=== PATIENT | female | born 1985 | race Caucasian/White ===

== ENCOUNTER 2023-03-22 09:44 | Outpatient (AMB) | payer OTHER, SELFPAY ==
--- NOTE | 2023-03-22 09:47 | MHC.OFFVIS ---
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 Patient states I've been having headaches all my life pretty much. Allergies hydrocodone Allergy (Severe, Verified 03/22/23 09:59) Migraine NSAIDS (Non-Steroidal Anti-Inflamma Allergy (Severe, Verified 03/22/23 09:59) Shortness of Breath oxycodone Allergy (Severe, Verified 03/22/23 09:59) Migraine adhesive Allergy (Unknown, Verified 03/22/23 09:59) Unknown buprenorphine [From Butrans] Allergy (Unknown, Verified 03/22/23 09:59) Unknown Medication List - Last Reconciled 03/22/23 by Lexy Keenan, MATHIEU acetaminophen (Tylenol Extra Strength) 500 mg PO Q6H PRN adalimumab (Humira) 40 mg subcut Q2W alendronate (Fosamax) 70 mg PO QWEEK alpha lipoic acid 600 mg PO DAILY amitriptyline 10 mg PO BEDTIME atogepant (Qulipta) 60 mg PO DAILY bupropion HCl 150 mg PO QAM buspirone 10 mg PO BID ayylfpjoae-zkljdtwagf-alh-cod 14-104-11-30 mg 1 cap PO Q4H PRN calcium carbonate (Calcium) 600 mg PO DAILY cholecalciferol (vitamin D3) 50 mcg PO DAILY coenzyme Z61-bzisgua E 100-100 mg-unit caps PO gabapentin 800 mg PO TID hydroxychloroquine 200 mg PO DAILY levothyroxine (Synthroid) 50 mcg PO DAILY liothyronine (Cytomel) 5 mcg PO DAILY magnesium 200 mg PO BID metoclopramide HCl 10 mg PO QIDACHS prednisone 2.5 mg PO Q OTHER DAY quetiapine 50 mg PO DAILY tizanidine 4 mg PO BEDTIME PRN topiramate 150 mg PO DAILY HPI HPI Comments History of Present Illness Details Right-handed 37-yr-old female presents for new pt evaluation of headache disorder. PMH connective tissue disease and rheumatology on chronic immunosuppresion tx f/b rheumatology and Sarah's thyroiditis. Pt reports she has had migraine since childhood w/o precipitating cause. She has been tried on multiple medications w/ varying effects. She has seen multiple neurologists over the years (has moved between different states). She was most recently seen by Dr Gardner, and upon his longterm, has been seeing Dr Edwige Pugh at [facility]. She comes here today to discuss possibility of retrying [place], [place] Headache questionnaire: Previous work-up? Brain MRI 03/17 and C-spine MRI- per notes- was NL. Typical mild headaches: Bilateral or right or left- frontal, occipital, or behind the ears. Sometimes a/w mild nausea. Frequency- 4-5 days out of the week when she has a fibromyalgia or her mixed connective tissue disease flares up. Takes Tylenol TID- for general pain, Fioricet as needed (frequency of use varies, receives 20 per month, sometimes runs out but other months has leftover)- which often helps. Typical migraine headache characteristics: Prodrome symptoms? unsure Aura? Every once in the while, may see flurries or dots prior to the onset. Location, quality, characteristics? Mid-frontal, above the bridge of the eyes, or mid-occipital. Stabbing, throbbing, nagging pain. Pain intensity? Mod-Severe Associated symptoms? Photophobia, phonophobia, osmophobia, nausea, allodynia (top of the head, even during her TTH). Focal weakness, Parethesias, Autonomic s/s? In the past, right facial tingling. Postdrome? Sometimes it may subside and linger for a few days. Triggers? Stress, weather changes, heat, caffeine (can trigger headache but a small amt can help). Any positional, valsalva, exertional, sexual activity triggers? None Menstrual triggers? May have migraine before/during her menses- just has spotting during her cycle since having a hysteroscopy. Time of day? No specific time of day Duration? 2-3 hrs, but can be 1-3 days. Frequency? In the past month, 9 migraine days. (In the past month, may have had 10 headache free days- notes she is alos on Tramadol bid-tid for back pain). How does headache impact your life? Sometimes cannot do what she needs to do. Current acute medication use/interventions: Qulipta 60mg qd- some effect, Topiramate 150mg qhs, Amitriptyline 35mg qhs, Mag, B2, C0-Q10. Previous acute medication use: Per pt- Aimovig, Emgality, Ajovy- lost effectiveness. Botox- years ago- was helpful- stopped d/t insurance coverage.. Propranolol- lost effectiveness. Depakote- ineffective. Current preventative medication use: Fioricet- prn TTH. Sumatriptan 100mg prn. Reglan prn- rarely. Previous preventative medication use: Nurtec/Ubrelvy- ineffective (was on Fioricet). Rizatriptan/Relpax- helped but effect waned. Non-pharmacological interventions: Warm pack helps. Ice does not help. Additional hx: History of musculoskeletal disorders or injury? chronic back pain, has h/o low back surgery, recent back injury was from trying to roll out of bed. History of concussion/head injury? none History of mood disorder? depression and anxiety History of sleep disorder? Sleeps ok. Uses quetiapine for sleep induction. History of respiratory disease? None History of CV disease? None History of coagulopathy? None History of endocrine or metabolic disease? Has sarah's thyroiditis- currently euthyroid History of seizure? None History of GI disorder? None. No constipation. 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 None PFS Medical History (Updated 03/22/23 @ 22:26 by MATHIEU Qureshi) Sleep difficulties Depression with anxiety Low back pain Fibromyalgia Sarah's thyroiditis Connective tissue disease Surgical History (Updated 03/22/23 @ 10:01 by BRI Frausto) H/O hernia repair History of hysteroscopy H/O tubal ligation H/O section H/O arthroscopic knee surgery History of back surgery Family History (Updated 03/22/23 @ 10:04 by BRI Frausto) Mother Migraine Lupus Breast cancer in female HTN (hypertension) Sarcoidosis Sister Migraine Father Cancer Son ADHD Anxiety Son Asthma Social History (Updated 03/22/23 @ 10:04 by BRI Frausto) Alcohol intake: current Patient Tobacco Use Status: Current everyday Tobacco user Review of Systems Const Details: See scanned ROS form Physical Exam Vital Signs: Last Vital Signs Pulse 99 03/22/23 09:56 BP 118/82 03/22/23 09:56 Pulse Ox 97 03/22/23 09:56 Oxygen Delivery Method Room Air 03/22/23 09:56 BMI result Body Mass Index 32.6 Const Orientation/consciousness: patient oriented x3 HEENT Other: No palpable scalp tenderness. Head: Yes normocephalic Resp Effort & Inspection: normal respiratory effort and able to speak in complete sentences Back/Spine/Pelvis Other: Low back pain- needs to alternate sitting/standing during visit Neuro General: patient oriented x3 Cranial nerves: Yes CN's II-XII intact bilaterally Cognition (Neuro): normal cognition Gait exam (Neuro): Normal gait present Motor exam (neuro): 5/5 motor strength present throughout Deep tendon reflexes (DTR's): Right triceps reflex intensity grade: 2+, Left triceps reflex intensity grade: 2+, Rt Biceps (C5, C6): 2+, Left biceps reflex intensity grade: 2+, Right brachioradialis reflex intensity grade: 2+, Left brachioradialis reflex intensity grade: 2+, Right patellar reflex intensity grade: 1+ and Left patellar reflex intensity grade: 1+ Coordination: olnzfx-ly-nvzb test normal Pupils: Normal pupillary reactivity/response: bilateral Psych Appearance: grossly normal Mental Status: mental status grossly normal Speech and movement: Normal speech and movement present Affect: normal affect Attitude: cooperative Thought process: Normal thought process present Assessment & Plan Assessment & Plan (1) Chronic migraine without aura: Code(s): G43.709 - Chronic migraine without aura, not intractable, without status migrainosus (2) Migraine with aura: Comment: w/ visual aura. This is a less frequent headache presentation Code(s): G43.109 - Migraine with aura, not intractable, without status migrainosus (3) Menstrual migraine: Code(s): G43.829 - Menstrual migraine, not intractable, without status migrainosus Plan For overall headache management: Discussed importance of good self-care, including but not limited to maintaining a healthy diet, adequate fluid intake, adequate sleep, and engaging in regular physical activity. For headache triggers: Track headaches. For mild headaches: Fioricet prn- discussed that this should be used sparingly. May be inhibiting full effect of Qulipta. For menstrual migraine: Trial Frovatriptan 1 tab bid starting 1-2 days prior to onset of menses, may repeat 1 tab bid up to 6 days total. For acute migraine headache treatment: Discussed importance of taking acute medications at the first sign of headache, however stressed importance of avoiding acute medication overuse. Continue prn Sumatriptan 100mg prn. Continue Reglan prn- advised to jim sparingly d/t risk for TD. Previous acute migraine medication trials: Nurtec/Ubrelvy- ineffective (was on Fioricet). Rizatriptan/Relpax- helped but effect waned. Acute migraine medication contraindications: None at this time. For chronic migraine prevention medication: Continue B2, Mag, CoQ-10. Continue Amitriptyline 35mg qhs. Continue Topiramate 150mg qhs. Continue Qulipta 60mg qd for now- note effect may be limited by current Fioricet and prednisone use- may need to hold once Botox started. Start Botox 155 units IM q 12 weeks. Previous migraine prevention medication trials: Aimovig, Emgality, Ajovy- lost effectiveness. Botox- years ago- was helpful- stopped d/t insurance coverage. Propranolol- lost effectiveness. Depakote- ineffective. Migraine prevention medication contraindications: None at this time. Information also given on non-pharmacological interventions, such as warming migraine caps or Nerivio neuromodulation devices. Pt states she cannot afford Cefaly at this time. Pt to follow-up in 3-4 months or sooner prn. Medications: New frovatriptan 1 tab bid starting 1-2 days before menses, may repeat up to 6 days total 30 days 12 tabs 6RF Coding Level of Care Code New Pt Level 4 (68524) Diagnoses Chronic migraine without aura G43.709 Migraine with aura G43.109 Menstrual migraine G43.829
[2023-03-22 09:56] VITALS: BP 118/82; PULSE 99; O2SAT 97; BMI 32.6
== END 2023-03-22 11:35 | disposition home or self-care (01) ==
PROVIDERS: PCP Psychiatry & Neurology Neurology; Visit Provider Nurse Practitioner Family
DX: G43.709 Chronic migraine without aura, not intractable, without status migrainosus (principal); G43.109 Migraine with aura, not intractable, without status migrainosus; G43.829 Menstrual migraine, not intractable, without status migrainosus
CPT/HCPCS: 99204

== ENCOUNTER → 2023-03-22 09:44 | Outpatient (BNVA) | payer OTHER, SELFPAY | PROVIDERS: PCP Psychiatry & Neurology Neurology; Visit Provider Nurse Practitioner Family ==

== ENCOUNTER 2023-05-15 08:18 | Outpatient (AMB) | payer OTHER, SELFPAY ==
--- NOTE | 2023-05-15 08:37 | A.OFFVIS_ITS ---
Intake Vital Signs 05/15/23 08:41 Height 5 ft 3.5 in Weight 191 lb BMI 33.3 BP 120/76 Blood Pressure Location Rt brachial Position Sitting Respiration 16 Pulse 98 Pulse Source Pulse Oximeter Pulse Oximetry (%) 99 Oxygen Delivery Method Room Air Intake Visit Reasons: Botox (B&B) Intake Note: Pt presents to the office for Botox injections. Tsa Screener Required: No Allergies hydrocodone Allergy (Severe, Verified 05/15/23 08:40) Migraine NSAIDS (Non-Steroidal Anti-Inflamma Allergy (Severe, Verified 05/15/23 08:40) Shortness of Breath oxycodone Allergy (Severe, Verified 05/15/23 08:40) Migraine adhesive Allergy (Unknown, Verified 05/15/23 08:40) Unknown buprenorphine [From Butrans] Allergy (Unknown, Verified 05/15/23 08:40) Unknown Medication List - Last Reconciled 05/15/23 by Vane Mcpherson MD acetaminophen (Tylenol Extra Strength) 500 mg PO Q6H PRN alendronate (Fosamax) 70 mg PO QWEEK alpha lipoic acid 600 mg PO DAILY amitriptyline 10 mg PO BEDTIME atogepant (Qulipta) 60 mg PO DAILY bupropion HCl 150 mg PO QAM buspirone 10 mg PO BID cowefrqwrh-tqhmndiddp-dxo-cod 05-550-84-30 mg 1 cap PO Q4H PRN calcium carbonate (Calcium) 600 mg PO DAILY cholecalciferol (vitamin D3) 50 mcg PO DAILY coenzyme B28-uhzmlzn E 100-100 mg-unit caps PO diclofenac sodium 75 mg PO BID etanercept (Enbrel) 25 mg subcut QWEEK frovatriptan 1 tab bid starting 1-2 days before menses, may repeat up to 6 days total 30 days gabapentin 800 mg PO TID hydroxychloroquine 200 mg PO DAILY levothyroxine (Synthroid) 50 mcg PO DAILY liothyronine (Cytomel) 5 mcg PO DAILY magnesium 200 mg PO BID metoclopramide HCl 10 mg PO QIDACHS prednisone 2.5 mg PO Q OTHER DAY quetiapine 50 mg PO DAILY tizanidine 4 mg PO BEDTIME PRN topiramate 150 mg PO DAILY HPI HPI Comments History of Present Illness Details ? 37y/o female comes for treatment of migraines with botox. ??? Most frequent reported adverse reactions following injection of botox for chronic migraine include neck pain (9%), headache(5%), eyelid ptosis(4%), migraine(4%), muscular weakness(4%), musculuskeletal stiffness(4%), bronchitis(3%), injection site pain (3%), musculoskeletal pain(3%), myalgia(3%), facial paresis(2%), HTN(2%) and muscle spasms(2%) were discussed in detail. ??? Botulinum toxin typeA 200units Lot no [id number] expiration Jul 2025 was diluted with 4 cc of normal saline . ??? Muscles injected- ??? Frontalis 4 sites ??? Procerus 1 site ??? Resident Care Coordinator- 2 sites ??? Temporalis- 8 sites ??? Occipitalis- 6 sites ??? Cervical paraspinals- 4 sites ??? Trapezius- 6 sites- 10 units each ??? 5 units each in 31 site ??? Total use- 185units ??? Discarded-15units [facility] Medical History Sleep difficulties Depression with anxiety Low back pain Fibromyalgia Haile's thyroiditis Connective tissue disease Surgical History H/O hernia repair History of hysteroscopy H/O tubal ligation H/O section H/O arthroscopic knee surgery History of back surgery Family History Mother Migraine Lupus Breast cancer in female HTN (hypertension) Sarcoidosis Sister Migraine Father Cancer Son ADHD Anxiety Son Asthma Social History Alcohol intake: current Patient Tobacco Use Status: Current everyday Tobacco user Physical Exam Vital Signs: Last Vital Signs Pulse 98 05/15/23 08:41 Resp 16 05/15/23 08:41 BP 120/76 05/15/23 08:41 Pulse Ox 99 05/15/23 08:41 Oxygen Delivery Method Room Air 05/15/23 08:41 BMI result Body Mass Index 33.3 Const Orientation/consciousness: patient oriented x3 HEENT Other: No palpable scalp tenderness. Head: Yes normocephalic Resp Effort & Inspection: normal respiratory effort and able to speak in complete sentences Back/Spine/Pelvis Other: Low back pain- needs to alternate sitting/standing during visit Neuro General: patient oriented x3 Cranial nerves: Yes CN's II-XII intact bilaterally Cognition (Neuro): normal cognition Gait exam (Neuro): Normal gait present Motor exam (neuro): 5/5 motor strength present throughout Coordination: gqznzu-sk-wyrh test normal Pupils: Normal pupillary reactivity/response: bilateral Psych Appearance: grossly normal Mental Status: mental status grossly normal Speech and movement: Normal speech and movement present Affect: normal affect Attitude: cooperative Thought process: Normal thought process present Office Procedures Botulinum toxin Injection 45000 - Migraine Procedure code (CPT) selection complete Office Meds onabotulinumtoxinA 200 unit solution for injection Performing Provider: Vane Mcpherson MD Performing Location: 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 This is a less frequent headache presentation Code(s): G43.109 - Migraine with aura, not intractable, without status migrainosus (3) Menstrual migraine: Code(s): G43.829 - Menstrual migraine, not intractable, without status migrainosus Plan Patient tolerated the procedure well she will call with any side effects Orders: Orders AMB Botulinum toxin Injection Today G43.709 - Chronic migraine without aura, not intractable, without status migrainosus Coding Level of Care Code Est Pt Level 1 (34950) Diagnoses Chronic migraine without aura G43.709 Migraine with aura G43.109 Menstrual migraine G43.829 CPT Codes Botox Injection - Botox 3: 31905 - Migraine ([id number])
[2023-05-15 08:41] VITALS: BP 120/76; PULSE 98; RESP 16; O2SAT 99; BMI 33.3
== END 2023-05-15 09:00 | disposition home or self-care (01) ==
PROVIDERS: PCP Psychiatry & Neurology Neurology; Visit Provider Psychiatry & Neurology Neurology
DX: G43.709 Chronic migraine without aura, not intractable, without status migrainosus (principal)
CPT/HCPCS: 64615

== ENCOUNTER → 2023-05-15 08:18 | Outpatient (BNVA) | payer OTHER, SELFPAY | PROVIDERS: PCP Psychiatry & Neurology Neurology; Visit Provider Psychiatry & Neurology Neurology | DX: G43.709 Chronic migraine without aura, not intractable, without status migrainosus (principal); G43.109 Migraine with aura, not intractable, without status migrainosus; G43.829 Menstrual migraine, not intractable, without status migrainosus | CPT/HCPCS: 64615; 99211; J0585 ==

== ENCOUNTER 2023-07-05 11:17 | Outpatient (AMB) | payer OTHER, SELFPAY ==
--- NOTE | 2023-07-05 11:27 | A.OFFVIS_ITS ---
Intake Vital Signs 07/05/23 11:31 Height 5 ft 3.5 in BP 114/84 Blood Pressure Location Rt brachial Position Sitting Intake Visit Reasons: 4 mo f/u - Migraine-Confirmed Intake Note: Patient presents for 4 month follow up migraines. migraines are getting a little better sinced I saw her Allergies buprenorphine [From BUTRANS] Allergy (Severe, Unverified 07/05/23 11:29) MIGRAINES hydrocodone Allergy (Severe, Verified 07/05/23 11:29) Migraine NSAIDS (Non-Steroidal Anti-Inflamma [NSAIDS (NON-STEROIDAL ANTI-INFLAMMA] Allergy (Severe, Unverified 07/05/23 11:29) SOB/SWELLING oxycodone Allergy (Severe, Verified 07/05/23 11:29) Migraine tramadol [From ULTRAM] Allergy (Intermediate, Unverified 07/05/23 11:29) ITCHING adhesive Allergy (Unknown, Verified 07/05/23 11:29) Unknown ibuprofen Allergy (Unknown, Verified 07/05/23 11:29) Unknown Medication List - Last Reconciled 07/09/23 by MATHIEU Qureshi acetaminophen (Tylenol Extra Strength) 500 mg PO Q6H PRN alendronate (Fosamax) 70 mg PO QWEEK alpha lipoic acid 600 mg PO DAILY amitriptyline 10 mg PO BEDTIME atogepant (Qulipta) 60 mg PO DAILY bupropion HCl 150 mg PO QAM buspirone 10 mg PO BID kjhzfkuvif-tfzgbnizvk-lwq-cod 92-045-74-30 mg 1 cap PO Q4H PRN calcium carbonate (Calcium) 600 mg PO DAILY cholecalciferol (vitamin D3) 50 mcg PO DAILY coenzyme X65-vorxkdr E 100-100 mg-unit caps PO diclofenac sodium 75 mg PO BID etanercept (Enbrel) 25 mg subcut QWEEK frovatriptan 1 tab bid starting 1-2 days before menses, may repeat up to 6 days total 30 days gabapentin 800 mg PO TID hydroxychloroquine 200 mg PO DAILY levothyroxine (Synthroid) 50 mcg PO DAILY liothyronine (Cytomel) 5 mcg PO DAILY magnesium 200 mg PO BID metoclopramide HCl 10 mg PO QIDACHS prednisone 2.5 mg PO Q OTHER DAY quetiapine 50 mg PO DAILY tizanidine 4 mg PO BEDTIME PRN topiramate 150 mg PO DAILY HPI HPI Comments History of Present Illness Details 37-yr-old female presents for f/u visit. Pt denies any significant interval medical changes. Was treated empirically in late May to prevent Flu as she is on Enbrel, and she was exposed to family member's w/ Flu. She also dropped a can of soup on her toe- x-ray was neg, but toe is still sore, swollen, and cold. Back injection was not helpful. Is being followed for this- plans to try [employer]. Baseline headache characteristics: Typical mild headaches: Bilateral or right or left- frontal, occipital, or behind the ears, a/w mild nausea at x's, allodynia Typical migraine headache characteristics: Aura of Every once in the while, may see flurries or dots prior to the onset. Mod-severe, Mid-frontal, above the bridge of the eyes, or mid-occipital. Stabbing, throbbing, nagging pain a/w photophobia, phonophobia, osmophobia, nausea, allodynia (top of the head). In the past, right facial tingling. Pt reports her migraines are less frequent but when she does have a migraine it is a bit more severe. She does feel that stress, not eating, weather changes are still triggers. Regarding her menses- she is spotting less- Frovatriptan was not overly effective. She did tolerate her Botox inj. and feels it is helping, although did have an increase in headache the following week (was also Thanksgiving). Current number of typical migraine days per month: 4-5 days Average painfulness of these migraines: Mod-severe- 5-9/10, when more severe a/w allodynia Current number of non-migraine headache days per month: Unsure- but r/t neck tightness and stress- her grandmother passed around [place]. Average painfulness of these headaches: mild Current number of days of acute medication use per month: < 4-5 of Sumatriptan or Excedrin , and rarely Fioricet, is using migraine caps. Previous number of migraine days per month prior to starting current preventive tx: Prior to Botox, 20 headcahe days w/ 9 migraine days. [facility] Medical History (Updated 06/28/23 @ 15:07 by Destiny Ward) Sleep difficulties Depression with anxiety Low back pain Fibromyalgia Haile's thyroiditis Connective tissue disease Surgical History H/O hernia repair History of hysteroscopy H/O tubal ligation H/O section H/O arthroscopic knee surgery History of back surgery Family History Mother Migraine Lupus Breast cancer in female HTN (hypertension) Sarcoidosis Sister Migraine Father Cancer Son ADHD Anxiety Son Asthma Social History Alcohol intake: current Patient Tobacco Use Status: Current everyday Tobacco user Physical Exam Vital Signs: Last Vital Signs BP 114/84 07/05/23 11:31 Const General: cooperative and no acute distress Orientation/consciousness: patient oriented x3 Resp Effort & Inspection: normal respiratory effort and able to speak in complete sentences Neuro General: patient oriented x3 Cranial nerves: Yes CN's II-XII intact bilaterally Cognition (Neuro): normal cognition Psych Appearance: grossly normal Mental Status: mental status grossly normal Speech and movement: Normal speech and movement present Affect: normal affect Attitude: cooperative Assessment & Plan Assessment & Plan (1) Chronic migraine without aura: Code(s): G43.709 - Chronic migraine without aura, not intractable, without status migrainosus (2) Migraine with aura: Comment: w/ visual aura. This is a less frequent headache presentation Code(s): G43.109 - Migraine with aura, not intractable, without status migrainosus (3) Menstrual migraine: Code(s): G43.829 - Menstrual migraine, not intractable, without status migrainosus Plan For overall headache management: Continue to optimize good self-care, including but not limited to maintaining a healthy diet, adequate fluid intake, adequate sleep, and engaging in regular physical activity. Track headaches. ? For mild headaches: Fioricet prn- use sparingly. May be inhibiting full effect of Qulipta. ? For menstrual migraine: May hold Frovatriptan- ineffective. Monitor. ? For acute migraine headache treatment: Continue prn Sumatriptan 100mg prn. Trial Eletriptan 40mg prn. Continue Reglan prn- advised to use sparingly d/t risk for TD. Previous acute migraine medication trials: Nurtec/Ubrelvy- ineffective (was on Fioricet). Rizatriptan/Relpax- helped but effect waned. Acute migraine medication contraindications: None at this time. ? For chronic migraine prevention medication: Continue B2, Mag, CoQ-10. Continue Amitriptyline 35mg qhs. Continue Topiramate 150mg qhs. Continue Qulipta 60mg qd for now- note effect may be limited by current Fioricet and prednisone use.. Continue Botox 155 units IM q 12 weeks. Previous migraine prevention medication trials: Aimovig, Emgality, Ajovy- lost effectiveness. Botox- years ago- was helpful- stopped d/t insurance coverage. Propranolol- lost effectiveness. Depakote- ineffective. Migraine prevention medication contraindications: None at this time. ? Advised to trial Nerivio neuromodulation 45 minute stimulation qod for prevention- form given to pt. ? Pt to follow-up in 3-4 months or sooner prn. Medications: New eletriptan take 1 tab at onset of headache; if no relief, may repeat 1 tab after at least 2 hrs; max = 2 tabs/24 hrs orally PRN; 12 tabs 3RF migraine headache 30 days Coding Level of Care Code Est Pt Level 4 (46893) Diagnoses Chronic migraine without aura G43.709 Migraine with aura G43.109 Menstrual migraine G43.829
[2023-07-05 11:31] VITALS: BP 114/84
== END 2023-07-05 12:27 | disposition home or self-care (01) ==
PROVIDERS: PCP Psychiatry & Neurology Neurology; Visit Provider Nurse Practitioner Family
DX: G43.709 Chronic migraine without aura, not intractable, without status migrainosus (principal); G43.109 Migraine with aura, not intractable, without status migrainosus; G43.829 Menstrual migraine, not intractable, without status migrainosus
CPT/HCPCS: 99214

== ENCOUNTER → 2023-07-05 11:17 | Outpatient (BNVA) | payer OTHER, SELFPAY | PROVIDERS: PCP Psychiatry & Neurology Neurology; Visit Provider Nurse Practitioner Family ==

== ENCOUNTER 2023-08-25 11:29 | Outpatient (AMB) | payer OTHER, SELFPAY ==
--- NOTE | 2023-08-25 11:37 | A.OFFVIS_ITS ---
Intake Vital Signs 08/25/23 11:38 Height 5 ft 3.5 in Weight 190 lb BMI 33.1 BP 128/76 Blood Pressure Location Rt brachial Position Sitting Respiration 16 Pulse 86 Pulse Source Pulse Oximeter Pulse Oximetry (%) 97 Oxygen Delivery Method Room Air Intake Visit Reasons: Botox appt-Confirmed Intake Note: Pt presents to the office for Botox injections. 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 Allergies buprenorphine [From BUTRANS] Allergy (Severe, Unverified 08/25/23 11:37) MIGRAINES hydrocodone Allergy (Severe, Verified 08/25/23 11:37) Migraine NSAIDS (Non-Steroidal Anti-Inflamma [NSAIDS (NON-STEROIDAL ANTI-INFLAMMA] Allergy (Severe, Unverified 08/25/23 11:37) SOB/SWELLING oxycodone Allergy (Severe, Verified 08/25/23 11:37) Migraine tramadol [From ULTRAM] Allergy (Intermediate, Unverified 08/25/23 11:37) ITCHING adhesive Allergy (Unknown, Verified 08/25/23 11:37) Unknown ibuprofen Allergy (Unknown, Verified 08/25/23 11:37) Unknown Medication List - Last Reconciled 08/25/23 by Vane Mcpherson MD acetaminophen (Tylenol Extra Strength) 500 mg PO Q6H PRN amitriptyline 10 mg PO BEDTIME atogepant (Qulipta) 60 mg PO DAILY bupropion HCl 150 mg PO QAM buspirone 10 mg PO BID cbqgintsbi-vtntuacqjb-krw-cod [id number] mg 1 cap PO Q4H PRN calcium carbonate (Calcium) 600 mg PO DAILY cholecalciferol (vitamin D3) 50 mcg PO DAILY coenzyme L48-ftmspse E 100-100 mg-unit caps PO diclofenac sodium 75 mg PO BID eletriptan take 1 tab at onset of headache; if no relief, may repeat 1 tab after at least 2 hrs; max = 2 tabs/24 hrs orally PRN; 30 days etanercept (Enbrel) 25 mg subcut QWEEK frovatriptan 1 tab bid starting 1-2 days before menses, may repeat up to 6 days total 30 days gabapentin 800 mg PO TID hydroxychloroquine 200 mg PO DAILY levothyroxine (Synthroid) 50 mcg PO DAILY liothyronine (Cytomel) 5 mcg PO DAILY magnesium 200 mg PO BID metoclopramide HCl 10 mg PO QIDACHS quetiapine 50 mg PO DAILY tizanidine 4 mg PO BEDTIME PRN topiramate 150 mg PO DAILY HPI HPI Comments History of Present Illness Details ? 37y/o female comes for treatment of migraines with botox. How many migraine days prior to botox-20 How long do the migraines last=2-3 Intensity of migraine-04/04 ER visits related to cifuzocn-8-7 Effectiveness of botox from last treatment(s) How many migraine days since receiving treatment:10 Change? in intensity of migraine?decreased Change in frequency of migraine?decreased Change in use of acute medication for migraine?decreased Change in quality of life?improved ER visits related to migraine?none Explanation for any gaps in treatment Have at least three months elapsed since last treatment (Last botox date - frequency of injections)05/18 ??? Most frequent reported adverse reactions following injection of botox for chronic migraine include neck pain (9%), headache(5%), eyelid ptosis(4%), migraine(4%), muscular weakness(4%), musculuskeletal stiffness(4%), bronchitis(3%), injection site pain (3%), musculoskeletal pain(3%), myalgia(3%), facial paresis(2%), HTN(2%) and muscle spasms(2%) were discussed in detail. ??? Botulinum toxin typeA 200units Lot no [id number] expiration November 2025 was diluted with 4 cc of normal saline . ??? Muscles injected- ??? Frontalis 4 sites ??? Procerus 1 site ??? Supervisor Electronic Coils- 2 sites ??? Temporalis- 8 sites ??? Occipitalis- 6 sites ??? Cervical paraspinals- 4 sites ??? Trapezius- 6 sites- 10 units each ??? 5 units each in 31 site ??? Total use- 185units ??? Discarded-15units [facility] Medical History Sleep difficulties Depression with anxiety Low back pain Fibromyalgia Haile's thyroiditis Connective tissue disease Surgical History H/O hernia repair History of hysteroscopy H/O tubal ligation H/O section H/O arthroscopic knee surgery History of back surgery Family History Mother Migraine Lupus Breast cancer in female HTN (hypertension) Sarcoidosis Sister Migraine Father Cancer Son ADHD Anxiety Son Asthma Social History Alcohol intake: current Patient Tobacco Use Status: Current everyday Tobacco user Physical Exam Vital Signs: Last Vital Signs Pulse 86 08/25/23 11:38 Resp 16 08/25/23 11:38 BP 128/76 08/25/23 11:38 Pulse Ox 97 08/25/23 11:38 Oxygen Delivery Method Room Air 08/25/23 11:38 BMI result Body Mass Index 33.1 Const General: cooperative and no acute distress Orientation/consciousness: patient oriented x3 Resp Effort & Inspection: normal respiratory effort and able to speak in complete sentences Neuro General: patient oriented x3 Cranial nerves: Yes CN's II-XII intact bilaterally Cognition (Neuro): normal cognition Psych Appearance: grossly normal Mental Status: mental status grossly normal Speech and movement: Normal speech and movement present Affect: normal affect Attitude: cooperative Office Procedures Botulinum toxin Injection 76752 - Migraine Procedure code (CPT) selection complete Office Meds onabotulinumtoxinA 200 unit solution for injection Performing Provider: Vane Mcpherson MD [place] [facility] [place] [facility] Administered by: Vane Mcpherson MD on 08/25/23 12:14 Dose Route Admin Location Dispensed Lot Number Expiration Date [facility] [place] [employer] Coord[employer] 185 unit subcut 200 units [id number] 11/24/25 6388-3283-20 ALLERGAN/BOTOX Comments: see HPI Assessment & Plan Assessment & Plan (1) Chronic migraine without aura: Code(s): G43.709 - Chronic migraine without aura, not intractable, without status migrainosus (2) Migraine with aura: Comment: w/ visual aura. This is a less frequent headache presentation Code(s): G43.109 - Migraine with aura, not intractable, without status migrainosus (3) Menstrual migraine: Code(s): G43.829 - Menstrual migraine, not intractable, without status migrainosus Plan Patient tolerated the procedure well she will call with any side effects Orders: Orders AMB Botulinum toxin Injection Today G43.709 - Chronic migraine without aura, not intractable, without status migrainosus Coding Level of Care Code Est Pt Level 1 (62675) Diagnoses Chronic migraine without aura G43.709 Migraine with aura G43.109 Menstrual migraine G43.829 CPT Codes Botox Injection - Botox 3: 91186 - Migraine ([id number])
[2023-08-25 11:38] VITALS: BP 128/76; PULSE 86; RESP 16; O2SAT 97; BMI 33.1
== END 2023-08-25 12:10 | disposition home or self-care (01) ==
PROVIDERS: PCP Psychiatry & Neurology Neurology; Visit Provider Psychiatry & Neurology Neurology
DX: G43.709 Chronic migraine without aura, not intractable, without status migrainosus (principal)
CPT/HCPCS: 64615

== ENCOUNTER → 2023-08-25 11:29 | Outpatient (BNVA) | payer OTHER, SELFPAY | PROVIDERS: PCP Psychiatry & Neurology Neurology; Visit Provider Psychiatry & Neurology Neurology | DX: G43.709 Chronic migraine without aura, not intractable, without status migrainosus (principal); G43.109 Migraine with aura, not intractable, without status migrainosus; G43.829 Menstrual migraine, not intractable, without status migrainosus | CPT/HCPCS: 64615; 99211; J0585 ==

== ENCOUNTER 2023-09-26 08:33 | Outpatient (AMB) | payer OTHER, SELFPAY ==
--- NOTE | 2023-09-26 08:34 | MHC.OFFVIS ---
Intake Intake Visit Reasons: 1 mnth f/u-Conf Intake Note: Pt presents for a one month follow up for migraine via telehealth. 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 Allergies buprenorphine [From BUTRANS] Allergy (Severe, Unverified 09/26/23 08:35) MIGRAINES hydrocodone Allergy (Severe, Verified 09/26/23 08:35) Migraine NSAIDS (Non-Steroidal Anti-Inflamma [NSAIDS (NON-STEROIDAL ANTI-INFLAMMA] Allergy (Severe, Unverified 09/26/23 08:35) SOB/SWELLING oxycodone Allergy (Severe, Verified 09/26/23 08:35) Migraine tramadol [From ULTRAM] Allergy (Intermediate, Unverified 09/26/23 08:35) ITCHING adhesive Allergy (Unknown, Verified 09/26/23 08:35) Unknown ibuprofen Allergy (Unknown, Verified 09/26/23 08:35) Unknown HPI HPI Comments History of Present Illness Details 37-yr-old female presents for f/u televideo visit via [employer]. Pt denies any significant interval medical changes. Pt notes that she was taking Tramadol regularly for her chronic low back pain. However, then she developed a stronger headache that lasted a whole week. She wonders if the tramadol triggered the migraine or was it just coincidence. In the past, other opiods have immediately triggered a migraine. She is seeing Dr Ballard at [facility]- working on losing weight, managing the tramadol, plans to try new back injections. PCP_ [facility] in [place]. She feels her migraines are overall better since starting Botox. She tolerated the 2nd cycle of Botox better- no post-tx migraine or headache. She is having 8-10 migraine days per month. She can have some tension headache days. Has been noticing some increased allergy symptoms. She wonders about reducing the Topiramate- to reduce her overall medication burden. Using Relpex prn. Using less Fioricet. Baseline headache characteristics: Typical mild headaches: Bilateral or right or left- frontal, occipital, or behind the ears, a/w mild nausea at x's, allodynia Typical migraine headache characteristics: Aura of Every once in the while, may see flurries or dots prior to the onset. Mod-severe, Mid-frontal, above the bridge of the eyes, or mid-occipital. Stabbing, throbbing, nagging pain a/w photophobia, phonophobia, osmophobia, nausea, allodynia (top of the head). In the past, right facial tingling. [facility] Medical History Sleep difficulties Depression with anxiety Low back pain Fibromyalgia Haile's thyroiditis Connective tissue disease Surgical History H/O hernia repair History of hysteroscopy H/O tubal ligation H/O section H/O arthroscopic knee surgery History of back surgery Family History Mother Migraine Lupus Breast cancer in female HTN (hypertension) Sarcoidosis Sister Migraine Father Cancer Son ADHD Anxiety Son Asthma Social History Alcohol intake: current Patient Tobacco Use Status: Current everyday Tobacco user Physical Exam Const General: cooperative and no acute distress Orientation/consciousness: patient oriented x3 Resp Effort & Inspection: normal respiratory effort and able to speak in complete sentences Neuro General: patient oriented x3 Cognition (Neuro): normal cognition Psych Appearance: grossly normal Mental Status: mental status grossly normal Speech and movement: Normal speech and movement present Affect: normal affect Attitude: cooperative Assessment & Plan Assessment & Plan (1) Chronic migraine without aura: Code(s): G43.709 - Chronic migraine without aura, not intractable, without status migrainosus (2) Migraine with aura: Comment: w/ visual aura. This is a less frequent headache presentation Code(s): G43.109 - Migraine with aura, not intractable, without status migrainosus (3) Menstrual migraine: Code(s): G43.829 - Menstrual migraine, not intractable, without status migrainosus Plan ? For overall headache management: Continue to optimize good self-care, including but not limited to maintaining a healthy diet, adequate fluid intake, adequate sleep, and engaging in regular physical activity. Track headaches. Reviewed that opioids including tramadol can reduce the threshold in which she may experience a migraine attack. Advised to discuss this with her pain management clinician. ? For mild headaches: Fioricet prn- use sparingly. May be inhibiting full effect of Qulipta. ? For menstrual migraine: Hold Frovatriptan- ineffective. Monitor. ? For acute migraine headache treatment: Continue prn Sumatriptan 100mg prn. Continue Eletriptan 40mg prn. Continue Reglan prn- advised to use sparingly d/t risk for TD. Previous acute migraine medication trials: Nurtec/Ubrelvy- ineffective (was on Fioricet). Rizatriptan/Relpax- helped but effect waned. Acute migraine medication contraindications: None at this time. ? For chronic migraine prevention medication: Continue B2, Mag, CoQ-10. Continue Amitriptyline 35mg qhs. Continue Topiramate 150mg qhs. Continue Qulipta 60mg qd for now- note effect may be limited by current Fioricet and prednisone use.. Continue Botox 155 units IM q 12 weeks, S patient is noticing good clinical effect from use. Previous migraine prevention medication trials: Aimovig, Emgality, Ajovy- lost effectiveness. Botox- years ago- was helpful- stopped d/t insurance coverage. Propranolol- lost effectiveness. Depakote- ineffective. Migraine prevention medication contraindications: None at this time. ? Pt to follow-up in 6 months or sooner prn. Medications: Discontinued frovatriptan Discontinued Reason: Doctor's Order 1 tab bid starting 1-2 days before menses, may repeat up to 6 days total 30 days 12 tabs 6RF Telehealth Telehealth Location of provider rendering services: practice address Location of patient: address on file Patient Identification confirmed using: Name, : Yes Telehealth method: video Patient verbally consented to treatment: Yes Patient verbally consented to billing insurance company: Yes Patient informed of any privacy concerns related to visit: Yes Minutes spent on Phone/Video with Pt.: 23 Coding Level of Care Code Tele Est Pt Level 4 (56866) Diagnoses Chronic migraine without aura G43.709 Migraine with aura G43.109 Menstrual migraine G43.829
== END 2023-09-26 11:51 | disposition home or self-care (01) ==
LOC: HO.HSMS 08:33
PROVIDERS: PCP Psychiatry & Neurology Neurology; Visit Provider Nurse Practitioner Family
DX: G43.709 Chronic migraine without aura, not intractable, without status migrainosus (principal); G43.109 Migraine with aura, not intractable, without status migrainosus; G43.829 Menstrual migraine, not intractable, without status migrainosus
CPT/HCPCS: 99214

== ENCOUNTER → 2023-09-26 08:33 | Outpatient (BNVA) | payer OTHER, SELFPAY | PROVIDERS: PCP Psychiatry & Neurology Neurology; Visit Provider Nurse Practitioner Family ==

== ENCOUNTER 2023-12-07 11:17 | Outpatient (AMB) | payer OTHER, SELFPAY ==
[2023-12-07 11:38] VITALS: BP 122/68; PULSE 76; RESP 16; O2SAT 98; BMI 29.8
--- NOTE | 2023-12-07 11:38 | MHC.OFFVIS ---
Vital Signs 12/07/23 11:38 Height 5 ft 3.5 in Weight 171 lb 2 oz BMI 29.8 BP 122/68 Blood Pressure Location Rt brachial Position Sitting Respiration 16 Pulse 76 Pulse Source Pulse Oximeter Pulse Oximetry (%) 98 Oxygen Delivery Method Room Air Intake Visit Reasons: Botox - Confirmed Intake Note: Pt presents to office for Botox injections. 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 Allergies buprenorphine [From BUTRANS] Allergy (Severe, Verified 12/07/23 11:38) MIGRAINES hydrocodone Allergy (Severe, Verified 12/07/23 11:38) Migraine NSAIDS (Non-Steroidal Anti-Inflamma [NSAIDS (NON-STEROIDAL ANTI-INFLAMMA] Allergy (Severe, Verified 12/07/23 11:38) SOB/SWELLING oxycodone Allergy (Severe, Verified 12/07/23 11:38) Migraine tramadol [From ULTRAM] Allergy (Intermediate, Verified 12/07/23 11:38) ITCHING adhesive Allergy (Unknown, Verified 12/07/23 11:38) Unknown ibuprofen Allergy (Unknown, Verified 12/07/23 11:38) Unknown Medication List - Last Reconciled 12/07/23 by Vane Mcpherson MD acetaminophen (Tylenol Extra Strength) 500 mg PO Q6H PRN amitriptyline 35 mg PO BEDTIME atogepant (Qulipta) 60 mg PO DAILY bupropion HCl XL 150 mg PO QAM buspirone 10 mg PO BID bbghcxlhcf-axorgiutea-rxa-cod 06-349-30-30 mg 1 cap PO Q4H PRN calcium carbonate (Calcium 600) 600 mg PO DAILY cholecalciferol (vitamin D3) 50 mcg PO DAILY coenzyme Y30-ztfrkwm E 100-100 mg-unit caps PO diclofenac sodium 75 mg PO BID eletriptan take 1 tab at onset of headache; if no relief, may repeat 1 tab after at least 2 hrs; max = 2 tabs/24 hrs orally PRN; 30 days etanercept (Enbrel) 25 mg subcut QWEEK gabapentin 800 mg PO TID hydroxychloroquine 200 mg PO DAILY levothyroxine (Synthroid) 50 mcg PO DAILY liothyronine (Cytomel) 5 mcg PO DAILY magnesium 200 mg PO BID metoclopramide HCl 10 mg PO QIDACHS quetiapine 50 mg PO DAILY tizanidine 4 mg PO BEDTIME PRN topiramate XR 150 mg PO DAILY HPI Comments Details: ? 38y/o female comes for treatment of migraines with botox. How many migraine days prior to botox-20 How long do the migraines last=2-3 Intensity of migraine-10/ ER visits related to fygvtcqe-9-9 Effectiveness of botox from last treatment(s) How many migraine days since receiving treatment:10 Change? in intensity of migraine?decreased Change in frequency of migraine?decreased Change in use of acute medication for migraine?decreased Change in quality of life?improved ER visits related to migraine?none Explanation for any gaps in treatment Have at least three months elapsed since last treatment (Last botox date - frequency of injections)09/16 ??? Most frequent reported adverse reactions following injection of botox for chronic migraine include neck pain (9%), headache(5%), eyelid ptosis(4%), migraine(4%), muscular weakness(4%), musculuskeletal stiffness(4%), bronchitis(3%), injection site pain (3%), musculoskeletal pain(3%), myalgia(3%), facial paresis(2%), HTN(2%) and muscle spasms(2%) were discussed in detail. ??? Botulinum toxin typeA 200units Lot no [id number] expiration November 2025 was diluted with 4 cc of normal saline . ??? Muscles injected- ??? Frontalis 4 sites ??? Procerus 1 site ??? Developer Automatic- 2 sites ??? Temporalis- 8 sites ??? Occipitalis- 6 sites ??? Cervical paraspinals- 4 sites ??? Trapezius- 6 sites- 10 units each ??? 5 units each in 31 site ??? Total use- 185units ??? Discarded-15units [facility] Medical History Sleep difficulties Depression with anxiety Low back pain Fibromyalgia Haile's thyroiditis Connective tissue disease Surgical History H/O hernia repair History of hysteroscopy H/O tubal ligation H/O section H/O arthroscopic knee surgery History of back surgery Family History Mother Migraine Lupus Breast cancer in female HTN (hypertension) Sarcoidosis Sister Migraine Father Cancer Son ADHD Anxiety Son Asthma Social History Alcohol intake: current Patient Tobacco Use Status: Current everyday Tobacco user Physical Exam Const General: cooperative and no acute distress Orientation/consciousness: patient oriented x3 Resp Effort & Inspection: normal respiratory effort and able to speak in complete sentences Neuro General: patient oriented x3 Cranial nerves: Yes CN's II-XII intact bilaterally Cognition (Neuro): normal cognition Psych Appearance: grossly normal Mental Status: mental status grossly normal Speech and movement: Normal speech and movement present Affect: normal affect Attitude: cooperative Office Procedures Botulinum toxin Injection 96776 - Migraine Procedure code (CPT) selection complete Office Meds onabotulinumtoxinA 200 unit solution for injection Performing Provider: Vane Mcpherson MD Performing Location: [facility] [place] [facility] Administered by: Vane Mcpherson MD on 12/07/23 11:52 Dose Route Admin Location Dispensed Lot Number Expiration Date [facility] 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 This is a less frequent headache presentation Code(s): G43.109 - Migraine with aura, not intractable, without status migrainosus Category: Medical (3) Menstrual migraine: Code(s): G43.829 - Menstrual migraine, not intractable, without status migrainosus Category: Medical Plan Patient tolerated the procedure well she will call with any side effects Orders: Orders AMB Botulinum toxin Injection Today G43.709 - Chronic migraine without aura, not intractable, without status migrainosus Medications: New onabotulinumtoxinA 200 units IM ONCE 1 ea 0RF migraine G43.709 - Chronic migraine without aura, not intractable, without status migrainosus Coding Level of Care Code Est Pt Level 1 (79472) Diagnoses Chronic migraine without aura G43.709 Migraine with aura G43.109 Menstrual migraine G43.829 CPT Codes Botox Injection - Botox 3: 80151 - Migraine ([id number])
== END 2023-12-07 12:00 | disposition home or self-care (01) ==
PROVIDERS: PCP Psychiatry & Neurology Neurology; Visit Provider Psychiatry & Neurology Neurology
DX: G43.E09 Chronic migraine with aura, not intractable, without status migrainosus (principal)
CPT/HCPCS: 64615

== ENCOUNTER → 2023-12-07 11:17 | Outpatient (BNVA) | payer OTHER, SELFPAY | PROVIDERS: PCP Psychiatry & Neurology Neurology; Visit Provider Psychiatry & Neurology Neurology | DX: G43.709 Chronic migraine without aura, not intractable, without status migrainosus (principal); G43.109 Migraine with aura, not intractable, without status migrainosus; G43.829 Menstrual migraine, not intractable, without status migrainosus | CPT/HCPCS: 64615; 99211; J0585 ==

== ENCOUNTER 2024-03-18 09:56 | Outpatient (AMB) | payer OTHER, SELFPAY ==
--- NOTE | 2024-03-18 10:00 | MHC.OFFVIS ---
Vital Signs 03/18/24 10:01 Height 5 ft 3.5 in Weight 166 lb 6 oz BMI 29.0 BP 110/70 Blood Pressure Location Rt brachial Position Sitting Respiration 16 Pulse 74 Pulse Source Palpation Intake Visit Reasons: Botox Intake Note: Pt presents to the office for Botox injections for chronic migraines. Nuclear Medicine Technologist Required: No Allergies buprenorphine [From BUTRANS] Allergy (Severe, Verified 03/18/24 10:01) MIGRAINES hydrocodone Allergy (Severe, Verified 03/18/24 10:01) Migraine NSAIDS (Non-Steroidal Anti-Inflamma [NSAIDS (NON-STEROIDAL ANTI-INFLAMMA] Allergy (Severe, Verified 03/18/24 10:01) SOB/SWELLING oxycodone Allergy (Severe, Verified 03/18/24 10:01) Migraine tramadol [From ULTRAM] Allergy (Intermediate, Verified 03/18/24 10:01) ITCHING adhesive Allergy (Unknown, Verified 03/18/24 10:01) Unknown ibuprofen Allergy (Unknown, Verified 03/18/24 10:01) Unknown Medication List - Last Reconciled 03/18/24 by Vane Mcpherson MD acetaminophen (Tylenol Extra Strength) 500 mg PO Q6H PRN amitriptyline 35 mg (3.5 x 10 mg) PO BEDTIME atogepant (Qulipta) 60 mg PO DAILY bupropion HCl XL 150 mg PO QAM buspirone 10 mg PO BID ivqdykewcx-lzpwcczlal-sfb-cod 39-487-88-30 mg 1 cap PO Q4H PRN calcium carbonate (Calcium 600) 600 mg PO DAILY cholecalciferol (vitamin D3) 50 mcg PO DAILY coenzyme [id number] E 100-100 mg-unit caps PO diclofenac sodium 75 mg PO BID eletriptan take 1 tab at onset of headache; if no relief, may repeat 1 tab after at least 2 hrs; max = 2 tabs/24 hrs orally PRN; 30 days etanercept (Enbrel) 25 mg subcut QWEEK gabapentin 800 mg PO TID hydroxychloroquine 200 mg PO DAILY levothyroxine (Synthroid) 50 mcg PO DAILY liothyronine (Cytomel) 5 mcg PO DAILY magnesium 200 mg PO BID metoclopramide HCl 10 mg PO QIDACHS quetiapine 50 mg PO DAILY sumatriptan succinate take 1 tab at onset of headache; if no relief, may repeat 1 tab after at least 2 hrs; max = 2 tabs/24 hrs PO tizanidine 4 mg PO BEDTIME PRN topiramate XR 150 mg PO DAILY HPI Comments Details: ? 38y/o female comes for treatment of migraines with botox. How many migraine days prior to botox-20 How long do the migraines last=2-3 Intensity of migraine-10 ER visits related to kidgtyjh-0-2 Effectiveness of botox from last treatment(s) How many migraine days since receiving treatment:10 Change? in intensity of migraine?decreased Change in frequency of migraine?decreased Change in use of acute medication for migraine?decreased Change in quality of life?improved ER visits related to migraine?none Explanation for any gaps in treatment Have at least three months elapsed since last treatment (Last botox date - frequency of injections)12/17 ??? Most frequent reported adverse reactions following injection of botox for chronic migraine include neck pain (9%), headache(5%), eyelid ptosis(4%), migraine(4%), muscular weakness(4%), musculuskeletal stiffness(4%), bronchitis(3%), injection site pain (3%), musculoskeletal pain(3%), myalgia(3%), facial paresis(2%), HTN(2%) and muscle spasms(2%) were discussed in detail. ??? Botulinum toxin typeA 200units Lot no [id number] expiration May 2026 was diluted with 4 cc of normal saline . ??? Muscles injected- ??? Frontalis 4 sites ??? Procerus 1 site ??? Technician Test Systems- 2 sites ??? Temporalis- 8 sites ??? Occipitalis- 6 sites ??? Cervical paraspinals- 4 sites ??? Trapezius- 6 sites- 10 units each ??? 5 units each in 31 site ??? Total use- 185units ??? Discarded-15units [facility] Medical History Sleep difficulties Depression with anxiety Low back pain Fibromyalgia Haile's thyroiditis Connective tissue disease Surgical History H/O hernia repair History of hysteroscopy H/O tubal ligation H/O section H/O arthroscopic knee surgery History of back surgery Family History Mother Migraine Lupus Breast cancer in female HTN (hypertension) Sarcoidosis Sister Migraine Father Cancer Son ADHD Anxiety Son Asthma Social History Alcohol intake: current Patient Tobacco Use Status: Current everyday Tobacco user Physical Exam Vital Signs: Last Vital Signs Pulse 74 03/18/24 10:01 Resp 16 03/18/24 10:01 BP 110/70 03/18/24 10:01 BMI result Body Mass Index 29.0 Const General: cooperative and no acute distress Orientation/consciousness: patient oriented x3 Resp Effort & Inspection: normal respiratory effort and able to speak in complete sentences Neuro General: patient oriented x3 Cranial nerves: Yes CN's II-XII intact bilaterally Cognition (Neuro): normal cognition Psych Appearance: grossly normal Mental Status: mental status grossly normal Speech and movement: Normal speech and movement present Affect: normal affect Attitude: cooperative Office Procedures Botulinum toxin Injection 61135 - Migraine Procedure code (CPT) selection complete Office Meds onabotulinumtoxinA 200 unit solution for injection Performing Provider: Vane Mcpherson MD Performing Location: [facility] [place] [facility] Administered by: Vane Mcpherson MD on 03/18/24 10:25 Dose Route Admin Location Dispensed Lot Number Expiration Date [facility] Shift Mechanic 185 unit subcut 200 units [id number] 05/26/26 0670-8244-17 ALLERGAN/BOTOX Comments: see hpi Assessment & Plan Assessment & Plan (1) Chronic migraine without aura: Code(s): G43.709 - Chronic migraine without aura, not intractable, without status migrainosus Category: Medical Qualifiers: Status migrainosus presence: without status migrainosus Intractability: intractable Qualified Code(s): G43.719 - Chronic migraine without aura, intractable, without status migrainosus (2) Menstrual migraine: Code(s): G43.829 - Menstrual migraine, not intractable, without status migrainosus Category: Medical Plan Patient tolerated the procedure well she will call with any side effects Orders: Orders AMB Botulinum toxin Injection Today G43.709 - Chronic migraine without aura, not intractable, without status migrainosus Medications: New onabotulinumtoxinA 200 units subcut ONCE 1 ea 0RF migraine G43.709 - Chronic migraine without aura, not intractable, without status migrainosus Coding Level of Care Code Est Pt Level 1 (02971) Diagnoses Intractable chronic migraine without aura and without status migrainosus G43.719 Status migrainosus presence: without status migrainosus Intractability: intractable Menstrual migraine G43.829 CPT Codes Botox Injection - Botox 3: 79444 - Migraine ([id number])
[2024-03-18 10:01] VITALS: BP 110/70; PULSE 74; RESP 16; BMI 29.0
== END 2024-03-18 10:23 | disposition home or self-care (01) ==
PROVIDERS: PCP Psychiatry & Neurology Neurology; Visit Provider Psychiatry & Neurology Neurology
DX: G43.719 Chronic migraine without aura, intractable, without status migrainosus (principal)
CPT/HCPCS: 64615

== ENCOUNTER → 2024-03-18 09:56 | Outpatient (BNVA) | payer OTHER, SELFPAY | PROVIDERS: PCP Psychiatry & Neurology Neurology; Visit Provider Psychiatry & Neurology Neurology | DX: G43.719 Chronic migraine without aura, intractable, without status migrainosus (principal); G43.829 Menstrual migraine, not intractable, without status migrainosus | CPT/HCPCS: 64615; 99211; J0585 ==

== ENCOUNTER 2024-07-02 09:50 | Outpatient (AMB) | payer OTHER, SELFPAY ==
[2024-07-02 09:52] VITALS: BP 98/70; PULSE 89; O2SAT 98; BMI 29.5
--- NOTE | 2024-07-02 09:52 | MHC.OFFVIS ---
Vital Signs 07/02/24 09:52 Height 5 ft 3.5 in Weight 169 lb 4 oz BMI 29.5 BP 98/70 Blood Pressure Location Rt brachial Position Sitting Pulse 89 Pulse Source Pulse Oximeter Pulse Oximetry (%) 98 Oxygen Delivery Method Room Air Intake Visit Reasons: Botox Intake Note: Patient needs a refill onmetoclopramide HCl Pattern Shop Supervisor Required: No Accompanied by: Self / Same As Patient Allergies buprenorphine [From BUTRANS] Allergy (Severe, Verified 07/02/24 09:59) MIGRAINES hydrocodone Allergy (Severe, Verified 07/02/24 09:59) Migraine NSAIDS (Non-Steroidal Anti-Inflamma [NSAIDS (NON-STEROIDAL ANTI-INFLAMMA] Allergy (Severe, Verified 07/02/24 09:59) SOB/SWELLING oxycodone Allergy (Severe, Verified 07/02/24 09:59) Migraine tramadol [From ULTRAM] Allergy (Intermediate, Verified 07/02/24 09:59) ITCHING adhesive Allergy (Unknown, Verified 07/02/24 09:59) Unknown ibuprofen Allergy (Unknown, Verified 07/02/24 09:59) Unknown Medication List - Last Reconciled 07/02/24 by Vane Mcpherson MD acetaminophen (Tylenol Extra Strength) 500 mg PO Q6H PRN amitriptyline 25 mg PO BEDTIME 30 days amitriptyline 10 mg PO BEDTIME 30 days atogepant (Qulipta) 60 mg PO DAILY 30 days bupropion HCl XL 300 mg PO QAM buspirone 10 mg PO BID qslosxrqqg-xeiyjypyii-htk-cod 50-296-09-30 mg 1 cap PO Q4H PRN calcium carbonate (Calcium 600) 600 mg PO DAILY cholecalciferol (vitamin D3) 50 mcg PO DAILY coenzyme H08-jstivwm E 100-100 mg-unit caps PO diclofenac sodium 75 mg PO BID eletriptan take 1 tab at onset of headache; if no relief, may repeat 1 tab after at least 2 hrs; max = 2 tabs/24 hrs orally PRN; 30 days etanercept (Enbrel) 25 mg subcut QWEEK gabapentin 800 mg PO TID hydroxychloroquine 200 mg PO DAILY levothyroxine (Synthroid) 50 mcg PO DAILY liothyronine (Cytomel) 5 mcg PO DAILY magnesium 200 mg PO BID metoclopramide HCl 10 mg PO QIDACHS quetiapine 50 mg PO DAILY sumatriptan succinate take 1 tab at onset of headache; if no relief, may repeat 1 tab after at least 2 hrs; max = 2 tabs/24 hrs PO tizanidine 4 mg PO BEDTIME PRN topiramate XR 150 mg PO DAILY Do you need a note to return to daycare/school/sports/work: No HPI Comments Details: ? 38y/o female comes for treatment of migraines with botox. How many migraine days prior to botox-20 How long do the migraines last=2-3 Intensity of migraine-10/ ER visits related to fcmnsdxe-4-4 Effectiveness of botox from last treatment(s) How many migraine days since receiving treatment:10 Change? in intensity of migraine?decreased Change in frequency of migraine?decreased Change in use of acute medication for migraine?decreased Change in quality of life?improved ER visits related to migraine?none Explanation for any gaps in treatment Have at least three months elapsed since last treatment (Last botox date - frequency of injections)3mths ago ??? Most frequent reported adverse reactions following injection of botox for chronic migraine include neck pain (9%), headache(5%), eyelid ptosis(4%), migraine(4%), muscular weakness(4%), musculuskeletal stiffness(4%), bronchitis(3%), injection site pain (3%), musculoskeletal pain(3%), myalgia(3%), facial paresis(2%), HTN(2%) and muscle spasms(2%) were discussed in detail. ??? Botulinum toxin typeA 200units Lot no [id number] expiration Feb 2026 was diluted with 4 cc of normal saline . ??? Muscles injected- ??? Frontalis 4 sites ??? Procerus 1 site ??? Complaint Supervisor- 2 sites ??? Temporalis- 8 sites ??? Occipitalis- 6 sites ??? Cervical paraspinals- 4 sites ??? Trapezius- 6 sites- 10 units each ??? 5 units each in 31 site ??? Total use- 185units ??? Discarded-15units [facility] Medical History Sleep difficulties Depression with anxiety Low back pain Fibromyalgia Haile's thyroiditis Connective tissue disease Surgical History H/O hernia repair History of hysteroscopy H/O tubal ligation H/O section H/O arthroscopic knee surgery History of back surgery Family History Mother Migraine Lupus Breast cancer in female HTN (hypertension) Sarcoidosis Sister Migraine Father Cancer Son ADHD Anxiety Son Asthma Social History Alcohol intake: current Patient Tobacco Use Status: Current everyday Tobacco user Physical Exam Vital Signs: Last Vital Signs Pulse 89 07/02/24 09:52 BP 98/70 07/02/24 09:52 Pulse Ox 98 07/02/24 09:52 Oxygen Delivery Method Room Air 07/02/24 09:52 BMI result Body Mass Index 29.5 Const General: cooperative and no acute distress Orientation/consciousness: patient oriented x3 Resp Effort & Inspection: normal respiratory effort and able to speak in complete sentences Neuro General: patient oriented x3 Cranial nerves: Yes CN's II-XII intact bilaterally Cognition (Neuro): normal cognition Psych Appearance: grossly normal Mental Status: mental status grossly normal Speech and movement: Normal speech and movement present Affect: normal affect Attitude: cooperative Office Procedures Botulinum toxin Injection 95526 - Migraine Procedure code (CPT) selection complete Office Meds onabotulinumtoxinA 200 unit solution for injection Performing Provider: Vane Mcpherson MD [place] [facility] [place] [facility] Administered by: Vane Mcpherson MD on 07/02/24 10:19 Dose Route Admin Location Dispensed Lot Number Expiration Date [facility] Yarn Inspector 185 unit subcut 200 units [id number] ALLERGAN/BOTOX Comments: see hpi Assessment & Plan Assessment & Plan (1) Chronic migraine without aura: Code(s): G43.709 - Chronic migraine without aura, not intractable, without status migrainosus Category: Medical Qualifiers: Status migrainosus presence: without status migrainosus Intractability: not intractable Qualified Code(s): G43.709 - Chronic migraine without aura, not intractable, without status migrainosus Plan Patient tolerated the procedure well she will call with any side effects Orders: Orders AMB Botulinum toxin Injection Today G43.709 - Chronic migraine without aura, not intractable, without status migrainosus Medications: New onabotulinumtoxinA 200 units subcut ONCE 1 ea 0RF migraine G43.709 - Chronic migraine without aura, not intractable, without status migrainosus Coding Level of Care Code Est Pt Level 1 (78479) Diagnoses Chronic migraine without aura without status migrainosus, not intractable G43.709 Status migrainosus presence: without status migrainosus Intractability: not intractable CPT Codes Botox Injection - Botox 3: 42007 - Migraine ([id number])
== END 2024-07-02 10:20 | disposition home or self-care (01) ==
PROVIDERS: PCP Psychiatry & Neurology Neurology; Visit Provider Psychiatry & Neurology Neurology
DX: G43.709 Chronic migraine without aura, not intractable, without status migrainosus (principal)
CPT/HCPCS: 64615

== ENCOUNTER → 2024-07-02 09:50 | Outpatient (BNVA) | payer OTHER, SELFPAY | PROVIDERS: PCP Psychiatry & Neurology Neurology; Visit Provider Psychiatry & Neurology Neurology | DX: G43.709 Chronic migraine without aura, not intractable, without status migrainosus (principal) | CPT/HCPCS: 64615; 99211; J0585 ==

== ENCOUNTER 2024-10-08 10:35 | Outpatient (AMB) | payer OTHER, SELFPAY ==
--- NOTE | 2024-10-08 10:40 | A.OFFVIS_ITS ---
Vital Signs 10/08/24 10:41 Height 5 ft 3.5 in Weight 174 lb BMI 30.3 Pulse 65 Pulse Source Pulse Oximeter Pulse Oximetry (%) 100 Oxygen Delivery Method Room Air Intake Visit Reasons: Botox Intake Note: Patient presents for botox injection. practice supplied Allergies buprenorphine [From BUTRANS] Allergy (Severe, Verified 10/08/24 10:46) MIGRAINES hydrocodone Allergy (Severe, Verified 10/08/24 10:46) Migraine NSAIDS (Non-Steroidal Anti-Inflamma [NSAIDS (NON-STEROIDAL ANTI-INFLAMMA] Allergy (Severe, Verified 10/08/24 10:46) SOB/SWELLING oxycodone Allergy (Severe, Verified 10/08/24 10:46) Migraine tramadol [From ULTRAM] Allergy (Intermediate, Verified 10/08/24 10:46) ITCHING adhesive Allergy (Unknown, Verified 10/08/24 10:46) Unknown ibuprofen Allergy (Unknown, Verified 10/08/24 10:46) Unknown Medication List - Last Reconciled 10/08/24 by Vane Mcpherson MD acetaminophen (Tylenol Extra Strength) 500 mg PO Q6H PRN amitriptyline 25 mg PO BEDTIME 30 days amitriptyline 10 mg PO BEDTIME 30 days atogepant (Qulipta) 60 mg PO DAILY 30 days bupropion HCl XL 300 mg PO QAM buspirone 10 mg PO BID vuermrukni-apjwvtbqjl-smk-cod 24-331-64-30 mg 1 cap PO Q4H PRN coenzyme W87-cjiekau E 100-100 mg-unit caps PO diclofenac sodium 75 mg PO BID eletriptan take 1 tab at onset of headache; if no relief, may repeat 1 tab after at least 2 hrs; max = 2 tabs/24 hrs orally PRN; 30 days etanercept (Enbrel) 25 mg subcut QWEEK gabapentin 800 mg PO TID hydroxychloroquine 200 mg PO DAILY levothyroxine (Synthroid) 50 mcg PO DAILY liothyronine (Cytomel) 5 mcg PO DAILY magnesium 200 mg PO BID metoclopramide HCl 10 mg PO QIDACHS quetiapine 50 mg PO DAILY sumatriptan succinate take 1 tab at onset of headache; if no relief, may repeat 1 tab after at least 2 hrs; max = 2 tabs/24 hrs PO tizanidine 4 mg PO BEDTIME PRN topiramate XR 150 mg PO DAILY HPI Comments Details: ? 38y/o female comes for treatment of migraines with botox. How many migraine days prior to botox-20 How long do the migraines last=2-3 Intensity of migraine-10/10 ER visits related to ryyqosof-8-6 Effectiveness of botox from last treatment(s) How many migraine days since receiving treatment:10 Change? in intensity of migraine?decreased Change in frequency of migraine?decreased Change in use of acute medication for migraine?decreased Change in quality of life?improved ER visits related to migraine?none Explanation for any gaps in treatment Have at least three months elapsed since last treatment (Last botox date - frequency of injections)3mths ago ??? Most frequent reported adverse reactions following injection of botox for chronic migraine include neck pain (9%), headache(5%), eyelid ptosis(4%), migraine(4%), muscular weakness(4%), musculuskeletal stiffness(4%), bronchitis(3%), injection site pain (3%), musculoskeletal pain(3%), myalgia(3%), facial paresis(2%), HTN(2%) and muscle spasms(2%) were discussed in detail. ??? Botulinum toxin typeA 200units Lot no [id number] expiration September 2026 was diluted with 4 cc of normal saline . ??? Muscles injected- ??? Frontalis 4 sites ??? Procerus 1 site ??? Boiler House Operator- 2 sites ??? Temporalis- 8 sites ??? Occipitalis- 6 sites ??? Cervical paraspinals- 4 sites ??? Trapezius- 6 sites- 10 units each ??? 5 units each in 31 site ??? Total use- 185units ??? Discarded-15units [facility] Medical History Sleep difficulties Depression with anxiety Low back pain Fibromyalgia Haile's thyroiditis Connective tissue disease Surgical History H/O hernia repair History of hysteroscopy H/O tubal ligation H/O section H/O arthroscopic knee surgery History of back surgery Family History Mother Migraine Lupus Breast cancer in female HTN (hypertension) Sarcoidosis Sister Migraine Father Cancer Son ADHD Anxiety Son Asthma Social History Alcohol intake: current Patient Tobacco Use Status: Current everyday Tobacco user Physical Exam Vital Signs: Last Vital Signs Pulse 65 10/08/24 10:41 Pulse Ox 100 10/08/24 10:41 Oxygen Delivery Method Room Air 10/08/24 10:41 BMI result Body Mass Index 30.3 Const General: cooperative and no acute distress Orientation/consciousness: patient oriented x3 Resp Effort & Inspection: normal respiratory effort and able to speak in complete sentences Neuro General: patient oriented x3 Cranial nerves: Yes CN's II-XII intact bilaterally Cognition (Neuro): normal cognition Psych Appearance: grossly normal Mental Status: mental status grossly normal Speech and movement: Normal speech and movement present Affect: normal affect Attitude: cooperative Office Procedures Botulinum toxin Injection 98064 - Migraine Procedure code (CPT) selection complete Office Meds onabotulinumtoxinA 200 unit solution for injection Performing Provider: Vane Mcpherson MD [place] [facility] [place] [facility] Administered by: Vane Mcpherson MD on 10/08/24 11:11 Dose Route Admin Location Dispensed Lot Number Expiration Date [facility] Fibreglass Laminator 185 unit subcut 200 units [id number] ALLERGAN/BOTOX Comments: see hpi Assessment & Plan Assessment & Plan (1) Chronic migraine without aura: Code(s): G43.709 - Chronic migraine without aura, not intractable, without status migrainosus Category: Medical Plan Patient tolerated the procedure well she will call with any side effects Orders: Orders AMB Botulinum toxin Injection Today G43.709 - Chronic migraine without aura, not intractable, without status migrainosus Medications: New onabotulinumtoxinA 200 units subcut ONCE 1 ea 0RF migraine G43.709 - Chronic migraine without aura, not intractable, without status migrainosus Coding Level of Care Code Est Pt Level 1 (19049) Diagnoses Chronic migraine without aura G43.709 CPT Codes Botox Injection - Botox 3: 38702 - Migraine ([id number])
[2024-10-08 10:41] VITALS: PULSE 65; O2SAT 100; BMI 30.3
--- OUTSIDE RECORDS SUMMARY | 2024-10-08 12:44 | XMS_ITS | Clinical Summary ---
Author Organization [facility] Address [address] [place] [phone] Phone Care Team Providers Care Research Engineer Marine Equipment Name Role Phone Nilson Whitman MD Primary Care Provider [phone] Surgical History Surgery Date Site/Laterality Comments OTHER SURGICAL HISTORY PROCEDURE: HYSTEROSCOPY, DIAGNOSTIC KNEE SURGERY Bilateral PROCEDURE: HISTORICAL KNEE SURGERY; COMMENT: Left x2, Right x1 BACK SURGERY PROCEDURE: HISTORICAL BACK SURGERY; COMMENT: L4-5, L5-S1 fusion with rods HERNIA REPAIR PROCEDURE: HISTORICAL HERNIA REPAIR/UMB KNEE SURGERY 01/02/2015 Right PROCEDURE: HISTORICAL KNEE SURGERY; COMMENT: knee arthroscopy, major synovectomy, Hoffa fat pad debridement Medical History Medical History Date Comments Hypothyroidism DX:Hypothyroidis m Hypertrophic cardiomyopathy (CMS/HCC V24, CMS/HCC V28) DX:Hypertrophic cardiomyopat hy (HCC) Anxiety DX:Anxiety IBS (irritable bowel syndrome) 04/15/2021 D X:IBS (irritable bowel syndrome) Dyslipidemia 04/15/2021 DX:Dyslipidemia Tobacco use 04/15/2021 DX:Tobacco use Migraine DX:Migraine Family History Medical History Relation Name Comments Stomach cancer Father Breast cancer Mother Cancer of Small Bowel Neg Hx Colon cancer Neg Hx Kidney cancer Neg Hx Ovarian cancer Neg Hx Pancreatic cancer Neg Hx Uterine cancer Neg Hx Relation Name Status Comments Father Mother Alive Social History Tobacco Use Types Packs/Day Years Used Date Smoking Tobacco: Every Day Smokeless Tobacco: Current Alcohol Use Standard Drinks/Week Comments No 0 (1 standard drink = 0.6 oz pur e alcohol) Comments No Sex and Gender Information Value Date Recorded Sex Assigned at Not on file Legal Sex Female 9:52 PM EST Gender Identity Not on file Sexual Orientation Not on file Obstetrics History Para Term AB IAB SAB Ectopic Multiple Livin g Live Births 2 Last Filed Vital Signs Vital Sign Reading Time Taken Comments Blood Pressure 104/61 02/28/2024 11:23 AM EDT Si tting L Arm Pulse 88 02/28/2024 11:23 AM EDT Temperature - - Respiratory Rate - - Oxygen Saturation - - Inhaled Oxygen Concentration - - Weight 72.6 kg (160 lb) 05/07/2024 11:01 AM EST Height 160 cm (5' 3 ) 05/07/2024 11:01 AM EST Body Mass Index 28.34 05/07/2024 11:01 AM EST Plan of Treatment Health Maintenance Due Date Last Done Comments COVID-19 Vaccine (#1) 10/26/1988 DTaP,Tdap,and Td Vaccines (1 - Tdap) 10/26/2002 Hepatitis A Vaccines (1 of 2 - Risk 2-dose series) 10/26/2002 Hepatitis B Vaccines (1 of 3 - 19+ 3-dose series) 10/26/2002 Cholesterol Screening (Lipid Panel) 05/28/2022 Depression Screening 05/28/2022 HIV Screening 05/28/2022 Hepatitis C Screening 05/28/2022 Social Influencers of Health Screening 05/28/2022 Cervical Cancer Screening: P ap Smear 02/18/2024 02/17/2021 Influenza Vaccine (Season Ended) 2025 03/23/2023, 07/26/2022 Breast Cancer Screening 05/07/2026 05/07/20 24, 10/19/2022 Pneumococcal Vaccine: Pediatrics (0 to 5 Years) and At-Risk Patients (6 to 64 Years) Completed 12/19/2022 HIB Vaccines Aged Out No longer eligi ble based on patient's age to complete this topic HPV Vaccines Aged Out No longer eligi ble based on patient's age to complete this topic IPV Vaccines Aged Out No longer eligi ble based on patient's age to complete this topic MMR Vaccines Aged Out No longer eligi ble based on patient's age to complete this topic Meningococcal ACWY Vaccine Aged Out N o longer eligible based on patient's age to complete this topic Meningococcal B Vaccine Aged Out No l onger eligible based on patient's age to complete this topic RSV Immunization Patients Under 20 months Aged Out No longer eligible b ased on patient's age to complete this topic Varicella Vaccines Aged Out No longer eligible based on patient's age to complete this topic Procedures Procedure Name Priority Date/Time Associated Diagnosis Comments MG MAMMO DIGITAL SCREENING W BALBIR BILAT Routine 05/07/2024 11:24 AM EST Encounter for screening mammogram for breast cancer PAP SMEAR Routine 02/17/2021 from Last 3 Months or Most Recently Relevant to Health Maintenance Results * MG Mammo Digital Screening w Balbir bilat (05/07/2024 11:24 AM EST) Anatomical Region Laterality Modality Breast Bilateral Mammography 05/07/2024 11:3 8 AM EST Impressions 05/07/2024 11:42 AM EST No mammographic evidence of malignancy. A negative mammogram in the presence of a clinically suspicious palpable abnormality does not preclude the possibility of malignancy or alter the indications for biopsy. PQRI CPT II 3342F Code 12267, 48881 PQRI 225 CPT II 7025F TISSUE DENSITY: There are scattered areas of fibroglandular density. (BI-RADS category B) IMPRESSION: Benign. BI-RADS CATEGORY: 2 - BENIGN RECOMMENDATION: Screening bilateral mammogram is recommended in 1 year. Mammo Location: [facility], [address] [place] [address] -------- FINAL REPORT -------- Dictated By: Arash Kaur Dictated Date: 05/07/2024 11:38 ET Assigned Physician: Arash Kaur Reviewed and Electronically Signed By: Arash Kaur Signed Date: 05/07/2024 11:42 ET Workstation ID: [id number] Transcribed By: Self Edit Transcribed Date: 05/07/2024 11:38 ET Narrative 05/07/2024 11:42 AM EST CLINICAL: The patient is a 38 years Female presenting for routine screening mammography. COMPARISON: 10/19/2022 and 07/09/2020. ?? TECHNIQUE: Full-field digital mammography of the breasts bilaterally consisting of tomosynthesis in MLO and CC projection is performed in the Surgical Theatere 2000-D unit. ??Computer aided detection utilizing the iCAD system was utilized. FINDINGS: The breasts are again seen to be composed of a combination of fatty and fibroglandular elements as also demonstrated on prior studies. ??A few scattered benign calcifications are again seen bilaterally. ??There is no suspicious cluster of microcalcifications, mass, or area of architectural distortion. There is no skin thickening or nipple retraction. Procedure Note Arash Kaur MD - 05/07/2024 CLINICAL: The patient is a 38 years Female presenting for routinescreening mammography. COMPARISON: 10/19/2022 and 07/09/2020. TECHNIQUE: Full-field digital mammography of the breasts bilaterallyconsisting of tomosynthesis in MLO and CC projection is performed in theTeknovusographe 2000-D unit. Computer aided detection utilizing the Matchpoint Careersystem was utilized. FINDINGS: The breasts are again seen to be composed of a combination offatty and fibroglandular elements as also demonstrated on prior studies.A few scattered benign calcifications are again seen bilaterally. Thereis no suspicious cluster of microcalcifications, mass, or area ofarchitectural distortion. There is no skin thickening or nippleretraction. IMPRESSION: No mammographic evidence of malignancy. A negative mammogram in the presence of a clinically suspicious palpableabnormality does not preclude the possibility of malignancy or alter theindications for biopsy. PQRI CPT II 3342F Code 45772, 63729 PQRI 225 CPT II 7025F TISSUE DENSITY: There are scattered areas of fibroglandular density.(BI-RADS category B) IMPRESSION: Benign. BI-RADS CATEGORY: 2 - BENIGN RECOMMENDATION: Screening bilateral mammogram is recommended in 1 year. Mammo Location: [facility], [address] [place] [id number] -------- FINAL REPORT -------- Dictated By: Arash Kaur Dictated Date: 05/07/2024 11:38 ET Assigned Physician: Arash Kaur Reviewed and Electronically Signed By: Arash Kaur Signed Date: 05/07/2024 11:42 ET Workstation ID: [id number] Transcribed By: Self Edit Transcribed Date: 05/07/2024 11:38 ET us Nilson Whitman MD IMG BI PROCEDURES Final Result * Pap smear (02/17/2021) 02/17/2021 Narrative HISTORICAL TESTING LAB RESULTING AGENCY - 03/02/2021 7:45 AM EDT [id number] THINPREP PAP, IMAGED: NEGATIVE FOR SQUAMOUS INTRAEPITHELIAL LESION AND MALIGNANCY . BERNARDINO SPEARS(ASCP) (CASE ELECTRONICALLY SIGNED 03 01 2021) RESULT OF APTIMA HIGH RISK HPV ASSAY: HIGH RISK HPV: ??NEGATIVE (SEROTYPES 16,18,31,33,35,39,45,51,52,56,58,59,66,68) COMPLETED ON 2021-02-22 ADEQUACY: SATISFACTORY ENDOCERVICAL/TRANSFORMATION ZONE COMPONENT PRESENT. SOURCE: THINPREP PAP HPV ANY DX: ??REFLEX 16 AND 18, CERVICAL, IMAGED CLINICAL INFORMATION: HPV ANY DIAGNOSIS. PAP HX NONE, NO LMP RECORDED [Z12.4] Kisha Mckeon DO LAB CYTOLOGY ORDERABLES Final Result HISTORICAL TESTING LAB RESULTING AGENCY from Last 3 Months or Most Recently Relevant to Health Maintenance Insurance [facility] PUBLIC PLANS [place] [id number] Care Teams Research Engineer Marine Equipment Relationship Specialty Start Date End Date Nilson Whitman MD [address] [facility] [address] [place], [place] PCP - General Internal Medicine 08/14/20
== END 2024-10-08 11:02 | disposition home or self-care (01) ==
LOC: HO.HSMS 10:35
PROVIDERS: PCP Psychiatry & Neurology Neurology; Visit Provider Psychiatry & Neurology Neurology
DX: G43.709 Chronic migraine without aura, not intractable, without status migrainosus (principal)
CPT/HCPCS: 64615

== ENCOUNTER → 2024-10-08 10:35 | Outpatient (BNVA) | payer OTHER, SELFPAY | PROVIDERS: PCP Psychiatry & Neurology Neurology; Visit Provider Psychiatry & Neurology Neurology | DX: G43.709 Chronic migraine without aura, not intractable, without status migrainosus (principal) | CPT/HCPCS: 64615; 99211; J0585 ==

== ENCOUNTER 2024-10-11 09:19 | Outpatient (AMB) | payer OTHER, SELFPAY ==
--- NOTE | 2024-10-11 09:35 | A.OFFVIS_ITS ---
Vital Signs 10/11/24 09:36 Height 5 ft 3.5 in Weight 172 lb BMI 30.0 BP 100/74 Blood Pressure Location Rt brachial Position Sitting Pulse 95 Pulse Source Pulse Oximeter Pulse Oximetry (%) 98 Oxygen Delivery Method Room Air Intake Visit Reasons: 4 month F/U Intake Note: Patient presents 4 month follow up for chronic migraines. 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 Accompanied by: Self / Same As Patient Allergies buprenorphine [From BUTRANS] Allergy (Severe, Verified 10/11/24 09:36) MIGRAINES hydrocodone Allergy (Severe, Verified 10/11/24 09:36) Migraine NSAIDS (Non-Steroidal Anti-Inflamma [NSAIDS (NON-STEROIDAL ANTI-INFLAMMA] Allergy (Severe, Verified 10/11/24 09:36) SOB/SWELLING oxycodone Allergy (Severe, Verified 10/11/24 09:36) Migraine tramadol [From ULTRAM] Allergy (Intermediate, Verified 10/11/24 09:36) ITCHING adhesive Allergy (Unknown, Verified 10/11/24 09:36) Unknown ibuprofen Allergy (Unknown, Verified 10/11/24 09:36) Unknown Medication List - Last Reconciled 10/11/24 by MATHIEU Qureshi acetaminophen (Tylenol Extra Strength) 500 mg PO Q6H PRN amitriptyline 25 mg PO BEDTIME 30 days amitriptyline 10 mg PO BEDTIME 30 days atogepant (Qulipta) 60 mg PO DAILY 30 days bupropion HCl XL 300 mg PO QAM buspirone 10 mg PO BID [id number] [id number] mg 1 cap PO Q4H PRN coenzyme B43-pureeec E 100-100 mg-unit caps PO diclofenac sodium 75 mg PO BID eletriptan take 1 tab at onset of headache; if no relief, may repeat 1 tab after at least 2 hrs; max = 2 tabs/24 hrs orally PRN; 30 days etanercept (Enbrel) 25 mg subcut QWEEK gabapentin 800 mg PO TID hydroxychloroquine 200 mg PO DAILY levothyroxine (Synthroid) 50 mcg PO DAILY liothyronine (Cytomel) 5 mcg PO DAILY magnesium 200 mg PO BID metoclopramide HCl 10 mg PO QIDACHS quetiapine 50 mg PO DAILY sumatriptan succinate take 1 tab at onset of headache; if no relief, may repeat 1 tab after at least 2 hrs; max = 2 tabs/24 hrs PO tizanidine 4 mg PO BEDTIME PRN topiramate XR 150 mg PO DAILY HPI Comments Details: 38-yr-old female presents for f/u of migraine. Pt denies any significant interval medical changes. She states her wireless development manager recently started her on prednisone burst for a flare-up of her RA/connective tissue d/o's. States typically she is doing better since starting Enbrel. f/b Dr Levi and Ariel Frances at [facility]. Pt reports her migraine attacks have been better. She feels the Botox is really helpful. She can feel a slight uptick in migraine attacks the week before the next Botox injection. May occasionally have a bad headache/mild migraine triggered by stress, which responds to a small amount of caffeine or candy bar (typically does not take caffeine). She is not needing to take her acute migraine tx as often. She does use a warming head wrap as needed, which is helpful. Using Relpex prn. Using less Fioricet. She recently noticed some increase in her allergy s/s w/ the start of spring. She is trying to find better pillows. She is trying to work on strategies to reduce personal stress. 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 Her back pain is better managed. She had a back pain stimulator placed in May 2024. Uisng Tramadol prn- based on activity level- states her goal is to be completely off of it. She is seeing Dr Morales at [facility]. PCP_ [facility] in [place]. Baseline headache characteristics: Typical mild headaches: Bilateral or right or left- frontal, occipital, or behind the ears, a/w mild nausea at x's, allodynia Typical migraine headache characteristics: Aura of Every once in the while, may see flurries or dots prior to the onset. Mod-severe, Mid-frontal, above the bridge of the eyes, or mid-occipital. Stabbing, throbbing, nagging pain a/w photophobia, phonophobia, osmophobia, nausea, allodynia (top of the head). In the past, right facial tingling. [facility] Medical History Sleep difficulties Depression with anxiety Low back pain Fibromyalgia Haile's thyroiditis Connective tissue disease Surgical History H/O hernia repair History of hysteroscopy H/O tubal ligation H/O section H/O arthroscopic knee surgery History of back surgery Family History Mother Migraine Lupus Breast cancer in female HTN (hypertension) Sarcoidosis Sister Migraine Father Cancer Son ADHD Anxiety Son Asthma Social History Alcohol intake: current Patient Tobacco Use Status: Current everyday Tobacco user Physical Exam Vital Signs: Last Vital Signs Pulse 95 10/11/24 09:36 BP 100/74 10/11/24 09:36 Pulse Ox 98 10/11/24 09:36 Oxygen Delivery Method Room Air 10/11/24 09:36 BMI result Body Mass Index 30.0 Const General: cooperative and no acute distress Orientation/consciousness: patient oriented x3 Resp Effort & Inspection: normal respiratory effort and able to speak in complete sentences Neuro General: patient oriented x3 Cognition (Neuro): normal cognition Psych Appearance: grossly normal Mental Status: mental status grossly normal Speech and movement: Normal speech and movement present Affect: normal affect Attitude: cooperative Assessment & Plan Assessment & Plan (1) Chronic migraine without aura: Code(s): G43.709 - Chronic migraine without aura, not intractable, without status migrainosus Category: Medical (2) Migraine with aura: Comment: w/ visual aura. This is a less frequent headache presentation Code(s): G43.109 - Migraine with aura, not intractable, without status migrainosus Category: Medical (3) Menstrual migraine: Code(s): G43.829 - Menstrual migraine, not intractable, without status migrainosus Category: Medical Plan ? For overall headache management: Continue to optimize good self-care, including but not limited to maintaining a healthy diet, adequate fluid intake, adequate sleep, and engaging in regular physical activity. Track headaches. Continue warming head wraps as needed. 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 May be inhibiting full effect of Qulipta. ? For menstrual migraine: Hold Frovatriptan- ineffective. Monitor. ? For acute migraine headache treatment: Continue prn Sumatriptan 100mg prn. Continue Eletriptan 40mg prn. Continue Reglan prn- use sparingly d/t risk for TD. Previous acute migraine medication trials: Nurtec/Ubrelvy- ineffective (was on Fioricet). Rizatriptan/Relpax- helped but effect waned. Acute migraine medication contraindications: None at this time. ? For chronic migraine prevention medication: Continue B2, Mag, CoQ-10. Continue Amitriptyline 35mg qhs. Continue weaning off of Topiramate. Continue Qulipta 60mg qd. Continue Botox 155 units IM q 12 weeks, S patient is noticing good clinical effect from use. Previous migraine prevention medication trials: Aimovig, Emgality, Ajovy- lost effectiveness. Botox- years ago- was helpful- stopped d/t insurance coverage. Propranolol- lost effectiveness. Depakote- ineffective. Migraine prevention medication contraindications: None at this time. ? Pt to follow-up in 6 months or sooner prn. Medications: New riboflavin (vitamin B2) 400 mg PO DAILY 30 tabs 6RF 30 days Changed From topiramate XR 150 my in am, 100 mg pm 150 mg PO DAILY To topiramate XR taking 100mg qam, and taking 100mg every other evening. 150 mg PO DAILY Coding Level of Care Code Est Pt Level 4 (10094) Diagnoses Chronic migraine without aura G43.709 Migraine with aura G43.109 Menstrual migraine G43.829
[2024-10-11 09:36] VITALS: BP 100/74; PULSE 95; O2SAT 98
--- OUTSIDE RECORDS SUMMARY | 2024-10-11 09:47 | XMS_ITS | Clinical Summary ---
Author Organization [facility] Address [address] [place] [phone] Phone Care Team Providers Care Reinforced Ironworker Name Role Phone Nilson Whitman MD Primary Care Provider [phone] Surgical History Surgery Date Site/Laterality Comments OTHER [...] for biopsy. PQRI CPT II 3342F Code 19550, 89891 PQRI 225 CPT II 7025F TISSUE DENSITY: There are scattered areas of fibroglandular density. (BI-RADS category B) IMPRESSION: Benign. BI-RADS CATEGORY: 2 - BENIGN RECOMMENDATION: Screening bilateral mammogram is recommended in 1 year. Mammo Location: [facility], [address] [place] [address] -------- FINAL REPORT -------- Dictated By: Arash Kaur Dictated Date: 05/07/2024 11:38 ET Assigned Physician: Arash Kaur Reviewed and Electronically Signed By: Arash Kaur Signed Date: 05/07/2024 11:42 ET Workstation ID: [id number] Transcribed By: Self Edit Transcribed Date: 05/07/2024 11:38 ET Narrative 05/07/2024 11:42 AM EST CLINICAL: The patient is a 38 years Female presenting for routine screening mammography. COMPARISON: 10/19/2022 and 07/09/2020. ?? TECHNIQUE: Full-field digital mammography of the breasts bilaterally consisting of tomosynthesis in MLO and CC projection is performed in the [employer] 2000-D unit. ??Computer aided detection utilizing the [...] MLO and CC projection is performed in theNext Glassographe 2000-D unit. Computer aided detection utilizing the ParStreamystem was utilized. FINDINGS: The breasts are again [...] for biopsy. PQRI CPT II 3342F Code 50471, 59714 PQRI 225 CPT II 7025F TISSUE DENSITY: There are scattered areas of fibroglandular density.(BI-RADS category B) IMPRESSION: Benign. BI-RADS CATEGORY: 2 - BENIGN RECOMMENDATION: Screening bilateral mammogram is recommended in 1 year. Mammo Location: [facility], [address] [place] [id number] -------- FINAL REPORT -------- Dictated By: Arash Kaur Dictated Date: 05/07/2024 11:38 ET Assigned Physician: Arash Kaur Reviewed and Electronically Signed By: Arash Kaur Signed Date: 05/07/2024 11:42 ET Workstation ID: [id number] Transcribed By: Self Edit Transcribed Date: 05/07/2024 11:38 ET us Nilson Whitman MD IMG BI PROCEDURES Final Result * Pap smear (02/17/2021) 02/17/2021 Narrative HISTORICAL TESTING LAB RESULTING AGENCY - 03/02/2021 7:45 AM EDT [id number] THINPREP PAP, IMAGED: NEGATIVE FOR SQUAMOUS INTRAEPITHELIAL [...] Most Recently Relevant to Health Maintenance Insurance [facility] PUBLIC PLANS [place] [id number] Care Teams Reinforced Ironworker Relationship Specialty Start Date End Date Nilson Whitman MD [address] [facility] [address] [place], [place] PCP - General Internal Medicine 08/14/20
--- OUTSIDE RECORDS SUMMARY | 2024-10-11 09:47 | XMS_ITS | Data Portability ---
Author Organization NELLIE Carmen Servin, MACKENZIEO_[facility] Address [address] [place] [address] [address] [place] [address] Care Team Providers Care Front Counter Clerk Name Role Phone NUBIA ZAVALA Referring Provider Assessment Encounter Date Assessment Date Assessment LastModified by Organization Details LastModified Time 03/29/2016 03/29/2016 discussed [email or web address] Not available 09/2015 10:27:25 Plan of Treatment Reminders Order Date Submit Date Provider Last Modified By Organization Details Last Modified Time Details Appointments None recorde d. Lab None recorde d. Referral None recorde d. Procedures None recorde d. Surgeries None recorde d. Imaging XR, foot - 3 Views 016 03/29/20 16 DBA_PATCH_ [id number] [facility] ([address] [place] [address]), [address] [place], [address], 6 04:15:49 XR, ankle - 2 views 016 03/29/20 16 DBA_PATCH_ [id number] [facility] ([address] [place] [address]), [address] [place], [address], 6 04:15:49 Medication Orders None recorde d. Patient TargetsNo targets recorded. Patient Instructions Encounter Date Encounter Id Patient Instructions Last Modified By Organization Details Last Modified Time 03/29/2016 [id number] ankle sprain: care instructions [email or web address] Not available 03/29/2016 10:31:41 Reason for Referral None Reported. Results Created Date Observation Date Name Description Value Unit Range Abnormal Flag Note LastModifiedBy Organization Detail LastModifiedTime Result Notes None recorded. Medical Equipment None Reported. Allergies Allergen ID Allergen Name Allergen Category Reaction Reaction Severity Criticality Documentation Date Start Date Code Code System Note Provider Name and Address Organization Details Recorded Time 23029 Ultram medicatio n Not available Not available Not available 03/29/2016 97007 6 RxNorm Not Available Not Available Not Available 27393 Non-stero idal anti-infl ammatory agent (product) medicatio n Not available Not available Not available 04/18/2016 92147 005 SNOMED Not Available Not Available Not Available 23573 BuTrans medicatio n Not available Not available Not available 04/18/2016 58992 1 RxNorm Not Available Not Available Not Available Medications Name Sig Start Date Stop Date Status Note LastModified by Organization Details LastModified Time Elavil 10 mg tablet Take 1 tablet 3 times a day by oral route. active Not Available Not Available No t Available citalopram active Not Available Not Av ailable Not Available selenium active Not Available Not Avai lable Not Available methocarbamol active Not Available Not Available Not Available Maxalt active Not Available Not Availa ble Not Available buspirone active Not Available Not Brittney ilable Not Available pantoprazole active Not Available Not Available Not Available Zofran (base) active Not Available Not Available Not Available Vitals Date Recorded Body height Body weight Body mass index (BMI) Heart rate Systolic blood pressure Diastolic blood pressure Provider Name and Address Organization Details Last Updated DateTime 6 161.29 cm 75063.1 1 g 29.5 kg/m2 105 /min 120 mm[Hg] 78 mm[Hg] Nazanin Rondon [facility] 6 09:59:00 Social History Question Answer Notes LastModified by Organizat ion Details LastModified Time Tobacco Smoking Status Current Every Day Smoker Mervat wallace [facility] 03/29/2016 13:48:47 What Is Your Level Of Alcohol Consumption? None Information not available 03/29/2016 How Much Tobacco Do You Chew? None Information not available 03/29/2016 Which Of Your Hands Is Dominant? Right Information not available 03/29/2016 How Much Tobacco Do You Smoke? 0.5 PPD Information not available 03/29/2016 Sex: Unknown Functional Status None recorded. Mental Status None recorded. Family History Relationship Description Onset Age of this Age Resolved Age Notes LastModified by Organization Details LastModified Time Mother Hypertensive disorder [email or web address] Not available 2015 10:10:12 Mother Lupus erythematosu s [email or web address] Not available 2015 11:23:13 Medical History Condition Response Cancer Y Migraines Y Acid Reflux Y Thyroid Problems Y Anxiety Y Depression Y Gynecological HistoryNo gynecological history recorded. Obstetrics History GPAL:G 0 P 0 0 0 0 Past Encounters Encounter ID Performer Location Encounter Start Date Encounter Closed Date Diagnosis/Indication Diagnosis SNOMED-CT Code Diagnosis ICD10 Code Diagnosis Note [id number] Marcell Romeo Jr., MD [address] [address] 03/29/2016 08:47:26 03/29/2016 10:33:17 Joint pain in ankle and foot 399422311 M25.572 Sprain of ankle 41845553 S93.402A Foot pain 73704720 M79.6 72 Stress fra cture of foot 909476656 M84.375A Health Concerns Section Related Observation LastModified by Organization Detai ls LastModified Time None Recorded Concern Status LastModified by Organization Details LastModified Time None Recorded Advance Directives Directive None Recorded Payers Encounter Date Sequence Insurance Name Policy Number Policy Pablo Covered Member ID Pablo Member ID Guarantor Name 03/29/2016 1 [facility]: [facility] [id number] Zachariah Aaron [id number] Christie Aaron Notes Date Note Type Note Provider Name and Address Organization Details Recorded Time 03/29/2016 text/html [id number] d bypatient.Locat ion:left Quality:not changing Severity:modera te Previous Surgery:none Prior Imaging:x ray Previous Injections:none Previous PT:none Work Related:noNotes :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 [place]USS [place], [address], [facility] [place] - [facility] 03/29/2016 11:27:48 OBGyn Episode No OBEpisode recorded.
== END 2024-10-11 10:23 | disposition home or self-care (01) ==
LOC: HO.HSMS 09:20
PROVIDERS: PCP Psychiatry & Neurology Neurology; Visit Provider Nurse Practitioner Family
DX: G43.829 Menstrual migraine, not intractable, without status migrainosus (principal); G43.109 Migraine with aura, not intractable, without status migrainosus; G43.709 Chronic migraine without aura, not intractable, without status migrainosus
CPT/HCPCS: 99214

== ENCOUNTER 2025-01-07 15:30 | Outpatient (AMB) | payer OTHER, SELFPAY ==
[2025-01-07 15:39] VITALS: BP 120/76; PULSE 78; O2SAT 98; BMI 31.0
--- NOTE | 2025-01-07 15:39 | MHC.OFFVIS ---
Vital Signs 01/07/25 15:39 Height 5 ft 3.5 in Weight 178 lb BMI 31.0 BP 120/76 Blood Pressure Location Rt brachial Position Sitting Pulse 78 Pulse Source Pulse Oximeter Pulse Oximetry (%) 98 Oxygen Delivery Method Room Air Intake Visit Reasons: 3mon Botox follow-up Intake Note: Patient presents for botox injection. pharmacy supplied Nailer Machine Required: No Accompanied by: Self / Same As Patient Allergies buprenorphine (From BUTRANS) Allergy (Severe, Verified 01/07/25 15:47) MIGRAINES hydrocodone Allergy (Severe, Verified 01/07/25 15:47) Migraine NSAIDS (Non-Steroidal Anti-Inflamma (NSAIDS (NON-STEROIDAL ANTI-INFLAMMA) Allergy (Severe, Verified 01/07/25 15:47) SOB/SWELLING oxycodone Allergy (Severe, Verified 01/07/25 15:47) Migraine tramadol (From ULTRAM) Allergy (Intermediate, Verified 01/07/25 15:47) ITCHING adhesive Allergy (Unknown, Verified 01/07/25 15:47) Unknown ibuprofen Allergy (Unknown, Verified 01/07/25 15:47) Unknown Medication List - Last Reconciled 01/07/25 by Vane Mcpherson MD acetaminophen (Tylenol Extra Strength) 500 mg PO Q6H PRN amitriptyline 25 mg PO BEDTIME 30 days amitriptyline 10 mg PO BEDTIME 30 days atogepant (Qulipta) 60 mg PO DAILY 30 days bupropion HCl XL 300 mg PO QAM buspirone 10 mg PO BID htsswjervr-knihowvgaa-uge-cod [id number] mg 1 cap PO Q4H PRN coenzyme M64-uhqqlnj E 100-100 mg-unit caps PO diclofenac sodium 75 mg PO BID eletriptan take 1 tab at onset of headache; if no relief, may repeat 1 tab after at least 2 hrs; max = 2 tabs/24 hrs orally PRN; 30 days etanercept (Enbrel) 25 mg subcut QWEEK gabapentin 800 mg PO TID hydroxychloroquine 200 mg PO DAILY levothyroxine (Synthroid) 50 mcg PO DAILY liothyronine (Cytomel) 5 mcg PO DAILY magnesium 200 mg PO BID metoclopramide HCl 10 mg PO QIDACHS quetiapine 50 mg PO DAILY riboflavin (vitamin B2) 400 mg PO DAILY 30 days sumatriptan succinate take 1 tab at onset of headache; if no relief, may repeat 1 tab after at least 2 hrs; max = 2 tabs/24 hrs PO tizanidine 4 mg PO BEDTIME PRN topiramate Take 100 mg in am AND 100mg every other night and 150 mg on alternate nights orally daily; 90 days HPI Comments Details: ? 38y/o female comes for treatment of migraines with botox. How many migraine days prior to botox-20 How long do the migraines last=2-3 Intensity of migraine-10/ ER visits related to zxicukwg-9-5 Effectiveness of botox from last treatment(s) How many migraine days since receiving treatment:10 Change? in intensity of migraine?decreased Change in frequency of migraine?decreased Change in use of acute medication for migraine?decreased Change in quality of life?improved ER visits related to migraine?none Explanation for any gaps in treatment Have at least three months elapsed since last treatment (Last botox date - frequency of injections)3mths ago ??? Most frequent reported adverse reactions following injection of botox for chronic migraine include neck pain (9%), headache(5%), eyelid ptosis(4%), migraine(4%), muscular weakness(4%), musculuskeletal stiffness(4%), bronchitis(3%), injection site pain (3%), musculoskeletal pain(3%), myalgia(3%), facial paresis(2%), HTN(2%) and muscle spasms(2%) were discussed in detail. ??? Botulinum toxin typeA 200units Lot no [id number] expiration Jul 2027 was diluted with 4 cc of normal saline . ??? Muscles injected- ??? Frontalis 4 sites ??? Procerus 1 site ??? Fixed Income Director- 2 sites ??? Temporalis- 8 sites ??? Occipitalis- 6 sites ??? Cervical paraspinals- 4 sites ??? Trapezius- 6 sites- 10 units each ??? 5 units each in 31 site ??? Total use- 185units ??? Discarded-15units [facility] Medical History Sleep difficulties Depression with anxiety Low back pain Fibromyalgia Haile's thyroiditis Connective tissue disease Surgical History H/O hernia repair History of hysteroscopy H/O tubal ligation H/O section H/O arthroscopic knee surgery History of back surgery Family History Mother Migraine Lupus Breast cancer in female HTN (hypertension) Sarcoidosis Sister Migraine Father Cancer Son ADHD Anxiety Son Asthma Social History Alcohol intake: current Patient Tobacco Use Status: Current everyday Tobacco user Physical Exam Vital Signs: Last Vital Signs Pulse 78 01/07/25 15:39 BP 120/76 01/07/25 15:39 Pulse Ox 98 01/07/25 15:39 Oxygen Delivery Method Room Air 01/07/25 15:39 BMI result Body Mass Index 31.0 Const General: cooperative and no acute distress Orientation/consciousness: patient oriented x3 Resp Effort & Inspection: normal respiratory effort and able to speak in complete sentences Neuro General: patient oriented x3 Cranial nerves: Yes CN's II-XII intact bilaterally Cognition (Neuro): normal cognition Psych Appearance: grossly normal Mental Status: mental status grossly normal Speech and movement: Normal speech and movement present Affect: normal affect Attitude: cooperative Office Procedures Botulinum toxin Injection 24290 - Migraine Procedure code (CPT) selection complete Office Meds onabotulinumtoxinA 200 unit solution for injection Performing Provider: Vane Mcpherson MD Performing Location: [facility] Administered by: Vane Mcpherson MD on 01/07/25 16:18 Dose Route Admin Location Dispensed Lot Number Expiration Date [facility] Industrial Hygiene Engineer 185 unit subcut 200 units [id number] ALLERGAN/BOTOX Total Dispensed Waste 200 units 7.5 % Comments: see hpi Assessment & Plan Assessment & Plan (1) Chronic migraine without aura: Code(s): G43.709 - Chronic migraine without aura, not intractable, without status migrainosus Category: Medical Qualifiers: Status migrainosus presence: without status migrainosus Intractability: not intractable Qualified Code(s): G43.709 - Chronic migraine without aura, not intractable, without status migrainosus Plan Patient tolerated the procedure well she will call with any side effects Orders: Orders AMB Botulinum toxin Injection Today G43.709 - Chronic migraine without aura, not intractable, without status migrainosus Coding Level of Care Code Est Pt Level 1 (27261) Diagnoses Chronic migraine without aura without status migrainosus, not intractable G43.709 Status migrainosus presence: without status migrainosus Intractability: not intractable CPT Codes Botox Injection - Botox 3: 23137 - Migraine ([id number])
--- OUTSIDE RECORDS SUMMARY | 2025-01-07 16:32 | XMS_ITS | Clinical Summary ---
Author Organization [facility] Address [address] [place] [address] Phone Care Team Providers Care Chain Maker Machine Name Role Phone Nilson Whitman MD Primary Care Provider [phone] Surgical History Surgery Date Site/Laterality Comments OTHER [...] P ap Smear 02/18/2024 02/17/2021 Influenza Vaccine (#1) 2025 , 07/26/2022 Breast Cancer Screening 05/07/2026 05/07/20 24, 10/19/2022 Pneumococcal Vaccine: Pediatrics (0 to 5 Years) and At-Risk Patients (6 to 49 Years) Completed 12/19/2022 HIB Vaccines Aged Out [...] for biopsy. PQRI CPT II 3342F Code 52072, 57994 PQRI 225 CPT II 7025F TISSUE DENSITY: There are scattered areas of fibroglandular density. (BI-RADS category B) IMPRESSION: Benign. BI-RADS CATEGORY: 2 - BENIGN RECOMMENDATION: Screening bilateral mammogram is recommended in 1 year. Mammo Location: [facility], [address] [place] [address] -------- FINAL REPORT -------- Dictated By: Arash Kaur Dictated Date: 05/07/2024 11:38 ET Assigned Physician: Arash Kaur Reviewed and Electronically Signed By: Arash Kaur Signed Date: 05/07/2024 11:42 ET Workstation ID: [id number] Transcribed By: Self Edit Transcribed Date: 05/07/2024 11:38 ET Narrative 05/07/2024 11:42 AM EST CLINICAL: The patient is a 38 years Female presenting for routine screening mammography. COMPARISON: 10/19/2022 and 07/09/2020. TECHNIQUE: Full-field digital mammography of the breasts bilaterally consisting of tomosynthesis in MLO and CC projection is performed in the Supersolide 2000-D unit. Computer aided detection utilizing the iCAD system was utilized. FINDINGS: The breasts are again seen to be composed of a combination of fatty and fibroglandular elements as also demonstrated on prior studies. A few scattered benign calcifications are again seen bilaterally. There is no suspicious cluster of microcalcifications, mass, or area of architectural distortion. There is no skin thickening or nipple retraction. Procedure Note Arash Kaur MD - 05/07/2024 CLINICAL: The patient is a 38 years Female presenting for routinescreening mammography. COMPARISON: 10/19/2022 and 07/09/2020. TECHNIQUE: Full-field digital mammography of the breasts bilaterallyconsisting of tomosynthesis in MLO and CC projection is performed in the[employer]ographe 2000-D unit. Computer aided detection utilizing the Fleecsystem was utilized. FINDINGS: The breasts are again [...] for biopsy. PQRI CPT II 3342F Code 06821, 96415 PQRI 225 CPT II 7025F TISSUE DENSITY: There are scattered areas of fibroglandular density.(BI-RADS category B) IMPRESSION: Benign. BI-RADS CATEGORY: 2 - BENIGN RECOMMENDATION: Screening bilateral mammogram is recommended in 1 year. Mammo Location: [facility], [address] [place] [id number] -------- FINAL REPORT -------- Dictated By: Arash Kaur Dictated Date: 05/07/2024 11:38 ET Assigned Physician: Arash Kaur Reviewed and Electronically Signed By: Arash Kaur Signed Date: 05/07/2024 11:42 ET Workstation ID: [id number] Transcribed By: Self Edit Transcribed Date: 05/07/2024 11:38 ET us Nilson Whitman MD IMG BI PROCEDURES Final Result * Pap smear (02/17/2021) 02/17/2021 Narrative HISTORICAL TESTING LAB RESULTING AGENCY - 03/02/2021 7:45 AM EDT [id number] THINPREP PAP, IMAGED: NEGATIVE FOR SQUAMOUS INTRAEPITHELIAL LESION AND MALIGNANCY . BERNARDINO SPEARS(ASCP) (CASE ELECTRONICALLY SIGNED 03 01 2021) RESULT OF APTIMA HIGH RISK HPV ASSAY: HIGH RISK HPV: NEGATIVE (SEROTYPES 16,18,31,33,35,39,45,51,52,56,58,59,66,68) COMPLETED ON 2021-02-22 ADEQUACY: SATISFACTORY ENDOCERVICAL/TRANSFORMATION ZONE COMPONENT PRESENT. SOURCE: THINPREP PAP HPV ANY DX: REFLEX 16 AND 18, CERVICAL, IMAGED CLINICAL INFORMATION: HPV ANY DIAGNOSIS. PAP HX NONE, NO LMP RECORDED [Z12.4] Kisha Mckeon DO LAB CYTOLOGY ORDERABLES Final Result HISTORICAL TESTING LAB RESULTING AGENCY from Last 3 Months or Most Recently Relevant to Health Maintenance Insurance [facility] PUBLIC PLANS [place] [id number] Care Teams Chain Maker Machine Relationship Specialty Start Date End Date Nilson Whitman MD [address] [place] [address] [address] [place], [place] PCP - General Internal Medicine 08/14/20
--- OUTSIDE RECORDS SUMMARY | 2025-01-07 16:32 | XMS_ITS | Data Portability ---
Author Organization NELLIE Carmen Servin, [facility]ZIEO[facility] [facility] Address [address] [place] [address] [address] [place] [address] Care Team Providers Care Certified Registered Dental Assistant Name Role Phone NUBIA ZAVALA Referring Provider [phone] Assessment Encounter Date Assessment Date Assessment LastModified [...] - 3 Views 016 03/29/20 16 DBA_PATCH_ [id number] [facility] ([address] [place] [address]), [address] [place], [address], 6 04:15:49 XR, ankle - 2 views 016 03/29/20 16 DBA_PATCH_ [id number] [facility] ([address] [place] [address]), [address] [place], [address], 6 04:15:49 Medication Orders None recorde d. Patient TargetsNo targets recorded. Patient Instructions Encounter Date Encounter Id Patient Instructions Last Modified By Organization Details Last Modified Time 03/29/2016 [id number] ankle sprain: care instructions [email or web address] Not available [...] Name and Address Organization Details Recorded Time 21980 Ultram medicatio n Not available Not available Not available 03/29/2016 09886 6 RxNorm [facility]in [facility] 6 10:02:32 20043 Non-stero idal anti-infl ammatory agent (product) medicatio n Not available Not available Not available 04/18/2016 59133 005 SNOMED [facility] 6 11:24:15 47865 BuTrans medicatio n Not available Not available Not available 04/18/2016 18149 1 RxNorm [facility] 6 11:24:25 Medications Name Sig Start Date Stop Date [...] Body mass index (BMI) Heart rate Systolic And Diastolic Provider Name and Address Organization Details Last Updated DateTime 03/29/2016 161.29 cm 89315.11 g 29.5 kg/m2 105 /min 120/78 mm[Hg] Nazanin Rondon [facility] 03/29/2016 09:59:00 Social History Question Answer Notes LastModified by Organizat ion Details LastModified Time Tobacco Smoking Status Current Every Day Smoker Mervat wallace [facility] LKbKeron 03/29/2016 13:48:47 How Much Tobacco Do You Chew? None Information not available 03/29/2016 Which Of Your Hands Is Dominant? Right Information not available 03/29/2016 How Much Tobacco Do You Smoke? 0.5 PPD Information not available 03/29/2016 Sex: Unknown Functional Status Question Answer Note LastModified by Organization D etails LastModified Time What is your level of alcohol consumption? None Information not available 03/29/2016 Mental Status None recorded. Family History Relationship [...] SNOMED-CT Code Diagnosis ICD10 Code Diagnosis Note [id number] Marcell Romeo Jr., MD [facility] [address] 03/29/2016 08:47:26 03/29/2016 10:33:17 Joint pain in ankle and foot 619621853 M25.572 Sprain of ankle 97906436 S93.402A Foot pain 15378730 M79.6 72 Stress fra cture of foot 799113186 M84.375A Health Concerns Section Related Observation LastModified by Organization Detai ls LastModified Time None Recorded Concern Status LastModified by Organization Details LastModified Time None Recorded Advance Directives Directive None Recorded Payers Insurance Date Sequence Insurance Name Policy Number Policy Pablo Covered Member ID Pablo Member ID Guarantor Name 03/01/2017 1 [employer] (MEDICAID REPLACEMENT - HMO) Christie Aaron [id number] Christie Aaron 02/24/2017 1 [place]: [facility] [id number] Zachariah Aaron [id number] Christie Aaron Notes Date Note Type Note Provider Name and Address Organization Details Recorded Time 03/29/2016 text/html [id number] d bypatient.Locat ion:left Quality:not changing Severity:modera te Previous Surgery:none Prior Imaging:x ray Previous Injections:none Previous PT:none Work Related: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 SENIOR ENVIRONMENTAL [place], [address], [facility] 03/29/2016 11:27:48 OBGyn Episode No OBEpisode recorded.
== END 2025-01-07 16:15 | disposition home or self-care (01) ==
LOC: HO.HSMS 15:30
PROVIDERS: PCP Psychiatry & Neurology Neurology; Visit Provider Psychiatry & Neurology Neurology
DX: G43.709 Chronic migraine without aura, not intractable, without status migrainosus (principal)
CPT/HCPCS: 64615

== ENCOUNTER → 2025-01-07 15:30 | Outpatient (BNVA) | payer OTHER, SELFPAY | PROVIDERS: PCP Psychiatry & Neurology Neurology; Visit Provider Psychiatry & Neurology Neurology | DX: G43.709 Chronic migraine without aura, not intractable, without status migrainosus (principal); F41.9 Anxiety disorder, unspecified; F32.A Depression, unspecified; M54.50 Low back pain, unspecified; M79.7 Fibromyalgia; E06.3 Autoimmune thyroiditis; Z79.890 Hormone replacement therapy | CPT/HCPCS: 64615; 99211; J0585 ==

== ENCOUNTER 2025-04-15 14:03 | Outpatient (AMB) | payer OTHER, SELFPAY ==
[2025-04-15 14:04] VITALS: BP 110/90; PULSE 97; O2SAT 97; BMI 31.5
--- NOTE | 2025-04-15 14:04 | MHC.OFFVIS ---
Vital Signs 04/15/25 14:04 Height 5 ft 3 in Weight 178 lb BMI 31.5 BP 110/90 H Blood Pressure Location Rt brachial Position Sitting Pulse 97 Pulse Source Pulse Oximeter Pulse Oximetry (%) 97 Oxygen Delivery Method Room Air Intake Visit Reasons: 6 mnts f/u appt Intake Note: Patient presents 4 month follow up for chronic migraines. Cardiovascular Or Nurse Required: No Accompanied by: Self / Same As Patient Allergies buprenorphine (From BUTRANS) Allergy (Severe, Verified 04/15/25 14:04) MIGRAINES hydrocodone Allergy (Severe, Verified 04/15/25 14:04) Migraine NSAIDS (Non-Steroidal Anti-Inflamma (NSAIDS (NON-STEROIDAL ANTI-INFLAMMA) Allergy (Severe, Verified 04/15/25 14:04) SOB/SWELLING oxycodone Allergy (Severe, Verified 04/15/25 14:04) Migraine tramadol (From ULTRAM) Allergy (Intermediate, Verified 04/15/25 14:04) ITCHING adhesive Allergy (Unknown, Verified 04/15/25 14:04) Unknown ibuprofen Allergy (Unknown, Verified 04/15/25 14:04) Unknown Medication List - Last Reconciled 04/15/25 by Lexy Keenan, MATHIEU acetaminophen (Tylenol Extra Strength) 500 mg PO Q6H PRN amitriptyline 10 mg PO BEDTIME 30 days amitriptyline 25 mg PO BEDTIME 30 days atogepant (Qulipta) 60 mg PO DAILY 30 days bupropion HCl XL 300 mg PO QAM buspirone 10 mg PO BID epgibytjai-ajteoslsvq-xso-cod [id number] mg 1 cap PO Q4H PRN coenzyme [id number] E 100-100 mg-unit caps PO diclofenac sodium 75 mg PO BID eletriptan take 1 tab at onset of headache; if no relief, may repeat 1 tab after at least 2 hrs; max = 2 tabs/24 hrs orally PRN; 30 days etanercept (Enbrel) 25 mg subcut QWEEK gabapentin 800 mg PO TID hydroxychloroquine 200 mg PO DAILY levothyroxine (Synthroid) 50 mcg PO DAILY liothyronine (Cytomel) 5 mcg PO DAILY magnesium 200 mg PO BID metoclopramide HCl 10 mg PO QIDACHS quetiapine 50 mg PO DAILY riboflavin (vitamin B2) 400 mg PO DAILY 30 days sumatriptan succinate take 1 tab at onset of headache; if no relief, may repeat 1 tab after at least 2 hrs; max = 2 tabs/24 hrs PO tizanidine 4 mg PO BEDTIME PRN topiramate Take 100 mg in am AND 100mg every other night and 150 mg on alternate nights orally daily; 90 days HPI Comments Details: 39-yr-old female presents for f/u of migraine. Pt denies any significant interval medical changes. Pt reports her migraine attacks have been better on Botox, though experiences slight uptick in migraine attacks the week before the next Botox injection. Of note, during today's visit, patient realize that she is currently due for her next Botox injection, as the last injection was on 01/07/2025. May occasionally have a bad headache/mild migraine triggered by stress, which responds to a small amount of caffeine or piece of chocolate (typically does not take caffeine). She is not needing to take her acute migraine tx as often. She does use a warming head wrap as needed, which is helpful. Using Relpex prn. Using less Fioricet. She states he is having increased back pain, and she is undergoing adjustments to her pain med stimulator. She had a back pain stimulator placed in May 2024. Using Tramadol prn- based on activity level- states her goal is to be completely off of it. She is followed by Dr Morales at [facility]. Her PCP is [facility] in [place]. Baseline headache characteristics: Typical mild headaches: Bilateral or right or left- frontal, occipital, or behind the ears, a/w mild nausea at x's, allodynia Typical migraine headache characteristics: Aura of Every once in the while, may see flurries or dots prior to the onset. Mod-severe, Mid-frontal, above the bridge of the eyes, or mid-occipital. Stabbing, throbbing, nagging pain a/w photophobia, phonophobia, osmophobia, nausea, allodynia (top of the head). In the past, right facial tingling. [facility] Medical History Sleep difficulties Depression with anxiety Low back pain Fibromyalgia Haile's thyroiditis Connective tissue disease Surgical History H/O hernia repair History of hysteroscopy H/O tubal ligation H/O section H/O arthroscopic knee surgery History of back surgery Family History Mother Migraine Lupus Breast cancer in female HTN (hypertension) Sarcoidosis Sister Migraine Father Cancer Son ADHD Anxiety Son Asthma Social History Alcohol intake: current Patient Tobacco Use Status: Current everyday Tobacco user Physical Exam Vital Signs: Last Vital Signs Pulse 97 04/15/25 14:04 BP 110/90 H 04/15/25 14:04 Pulse Ox 97 04/15/25 14:04 Oxygen Delivery Method Room Air 04/15/25 14:04 BMI result Body Mass Index 31.5 Const General: cooperative and no acute distress Orientation/consciousness: patient oriented x3 Resp Effort & Inspection: normal respiratory effort and able to speak in complete sentences Neuro General: patient oriented x3 and moves all extremities Cranial nerves: Yes CN's II-XII intact bilaterally Cognition (Neuro): normal cognition Gait exam (Neuro): Normal gait present Psych Appearance: grossly normal Mental Status: mental status grossly normal Speech and movement: Normal speech and movement present Affect: normal affect Attitude: cooperative Assessment & Plan Assessment & Plan (1) Chronic migraine without aura: Code(s): G43.709 - Chronic migraine without aura, not intractable, without status migrainosus Category: Medical Qualifiers: Status migrainosus presence: without status migrainosus Intractability: not intractable Qualified Code(s): G43.709 - Chronic migraine without aura, not intractable, without status migrainosus (2) Migraine with aura: Comment: w/ visual aura. This is a less frequent headache presentation Code(s): G43.109 - Migraine with aura, not intractable, without status migrainosus Category: Medical Qualifiers: Status migrainosus presence: without status migrainosus Intractability: not intractable Qualified Code(s): G43.109 - Migraine with aura, not intractable, without status migrainosus (3) Menstrual migraine: Code(s): G43.829 - Menstrual migraine, not intractable, without status migrainosus Category: Medical Qualifiers: Status migrainosus presence: without status migrainosus Intractability: not intractable Qualified Code(s): G43.829 - Menstrual migraine, not intractable, without status migrainosus Plan ? For overall headache management: Continue to optimize good self-care, including but not limited to maintaining a healthy diet, adequate fluid intake, adequate sleep, and engaging in regular physical activity. Track headaches. Continue warming head wraps as needed. 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 May be inhibit full effect of Qulipta. ? For menstrual migraine: Hold Frovatriptan- ineffective. Monitor. ? For acute migraine headache treatment: Continue prn Sumatriptan 100mg prn. Continue Eletriptan 40mg prn. Continue Reglan prn- use sparingly d/t risk for TD. Previous acute migraine medication trials: Nurtec/Ubrelvy- ineffective (was on Fioricet). Rizatriptan/Relpax- helped but effect waned. Acute migraine medication contraindications: None at this time. ? For chronic migraine prevention medication: Continue B2, Mag, CoQ-10. Continue Amitriptyline 35mg qhs. Continue Topiramate. Continue Qulipta 60mg daily Continue Botox 155 units IM q 12 weeks, as patient continues to have greater than 50% reduction in monthly migraine days and severity of migraine attacks from use. We will in the [facility] Botox Prior authorization renewal request, and have patient scheduled for currently do Botox injection therapy. Previous migraine prevention medication trials: Aimovig, Emgality, Ajovy- lost effectiveness. Botox- years ago- was helpful- stopped d/t insurance coverage. Propranolol- lost effectiveness. Depakote- ineffective. Migraine prevention medication contraindications: None at this time. ? Pt to follow-up in 6 months or sooner prn. Medications: New tramadol 100 mg PO BID PRN Refilled riboflavin (vitamin B2) 400 mg PO DAILY 30 tabs 11RF 30 days sumatriptan succinate take 1 tab at onset of headache; if no relief, may repeat 1 tab after at least 2 hrs; max = 2 tabs/24 hrs PO 14 tabs 6RF amitriptyline Take with 25 mg tab, for total of 35 mg q.h.s. 10 mg PO BEDTIME 30 tabs 6RF 30 days Coding Level of Care Code Est Pt Level 4 (37669) Diagnoses Chronic migraine without aura without status migrainosus, not intractable G43.709 Status migrainosus presence: without status migrainosus Intractability: not intractable Migraine with aura and without status migrainosus, not intractable G43.109 Status migrainosus presence: without status migrainosus Intractability: not intractable Menstrual migraine without status migrainosus, not intractable G43.829 Status migrainosus presence: without status migrainosus Intractability: not intractable
--- OUTSIDE RECORDS SUMMARY | 2025-04-15 18:56 | XMS_ITS | Clinical Summary ---
Author Organization [facility] Address [address] [place] [address] Phone Care Team Providers Care Car Designer Name Role Phone Mya Hopson Primary Care Provider Allergies Active Allergy Reactions Criticality Noted Date Comments Adhesive 02/26/2021 Adhesive Bandage Buprenorphine 02/26/2021 Nsaids (Non-Steroidal Anti-Inflammatory Drug) 02/26/2021 Tramadol 02/26/2021 Medications busPIRone (BUSPAR) 10 MG tablet Take 10 mg by mouth 2 (two) times a day. Active buPROPion (WELLBUTRIN XL) 150 MG ER 24 hr tablet Take 150 mg by mouth daily. Active QUEtiapine (SEROQUEL) 50 MG tablet Take 50 mg by mouth daily. Active ubidecarenone (COQ-10 ORAL) Take 400 mg by mouth daily. Active magnesium oxide (MGO) 400 mg (241.3 mg elemental) tablet Take 400 mg by mouth daily. Active butalbital-aceta minophen-caffein e (FIORICET, ESGIC) 50-325-40 mg per tablet Take 1 tablet by mouth every 4 (four) hours as needed for pain (specific location in comments). Active metoclopramide HCl (REGLAN) 10 MG tablet Take 1 tablet (10 mg total) by mouth as needed for nausea. 20 tablet 5 2 Active hydrOXYchloroQUI NE (PLAQUENIL) 200 mg tablet Take 1.5 tablets by mouth every morning. 3 Active levothyroxine (SYNTHROID, LEVOTHROID) 50 MCG tablet Take 1 tablet by mouth every morning. 3 Active liothyronine (CYTOMEL) 5 MCG tablet Take 1 tablet by mouth every morning. 3 Active predniSONE (DELTASONE) 5 MG tablet Take 10 mg by mouth daily. 3 Active metoclopramide HCl (REGLAN) 10 MG tablet TAKE 1 TABLET BY MOUTH NEEDED FOR NAUSEA 20 tablet 4 3 Active SUMAtriptan (IMITREX) 100 MG tabletIndication s:Intractable migraine with aura with status migrainosus TAKE 1 TABLET EVERY 2 (TWO) HOURS NEEDED FOR MIGRAINE. NOT TO EXCEED 200 MG/DAY 9 tablet 11 3 Active diclofenac sodium (VOLTAREN) 75 MG EC tablet Take 75 mg by mouth 2 (two) times a day with meals. 3 Active ENBREL SURECLICK 50 mg/mL (1 mL) PnIj 3 Active topiramate (TOPAMAX) 100 MG tabletIndication s:Intractable migraine with aura with status migrainosus TAKE 1.5 TABLETS BY MOUTH 2 TIMES A DAY. 270 tablet 2 4 Active gabapentin (NEURONTIN) 800 MG tablet Take 800 mg by mouth 3 (three) times a day. 4 Active eletriptan (RELPAX) 40 MG tablet PLEASE SEE ATTACHED FOR DETAILED DIRECTIONS 4 Active fexofenadine (MAYCOL) 180 MG tablet Take 1 tablet by mouth every morning. 4 Active fluticasone propionate (FLONASE) 50 mcg/actuation nasal spray spray 2 sprays into each nostril every day 4 Active traMADoL 25 mg Tab Active atogepant (QULIPTA) 60 mg tabletIndication s:Intractable migraine with aura with status migrainosus Take 1 tablet (60 mg total) by mouth daily. 30 tablet 11 4 Active amitriptyline (ELAVIL) 10 MG tablet take 1 tablet by mouth everyday at bedtime 90 tablet 3 4 Active amitriptyline (ELAVIL) 25 MG tabletIndication s:Intractable migraine with aura with status migrainosus take 1 tablet by mouth everyday at bedtime 30 tablet 1 4 Active Active Problems No known active problems Immunizations Immunization Administration Dates Next Due Influenza Quadrivalent MDCK Preservative Free IM 07/26/2022 Pneumococcal conjugate PCV20 12/19/2022 Social History Tobacco Use Types Packs/Day Years Used Date Smoking Tobacco: Never Assessed Education Answer Date Recorded Are you interested in more education? Not on darion e 10/22/2022 Are you concerned about learning? Not on file 10/22/2022 No 10/22/2022 No 10/22/2022 Digital Access Answer Date Recorded No 11/22/2022 No 11/22/2022 Reliable internet access at home? Not on file 11/22/2022 Device with a working camera? Not on file Comments Unknown Sex and Gender Information Value Date Recorded Sex Assigned at Not on file Legal Sex Female 9:26 AM EDT Gender Identity Not on file Sexual Orientation Not on file Last Filed Vital Signs Vital Sign Reading Time Taken Comments Blood Pressure 114/79 11/07/2022 10:15 AM EDT Pulse 95 11/07/2022 10:15 AM EDT Temperature 36.7 C (98 F) 11/07/2022 10:15 AM EDT Respiratory Rate - - Oxygen Saturation 98% 11/07/2022 10:15 AM EDT Inhaled Oxygen Concentration - - Weight 81.6 kg (180 lb) 11/07/2022 10:15 AM EDT Height 160 cm (5' 3 ) 11/07/2022 10:15 AM EDT Body Mass Index 31.89 11/07/2022 10:15 AM EDT Plan of Treatment Health Maintenance Due Date Last Done Comments Adult Td,Tdap Booster 1983 TSH LEVEL 1983 COVID-19 VACCINE (#1) 10/26/1988 DEPRESSION SCREENING 1995 SMOKING Hx and SMOKELESS TOB ACCO SCREENING 10/26/1996 HEPATITIS C SCREENING 10/26/2001 HIV ONE-TIME SCREENING (18-6 5 YEARS) 10/26/2001 SCREENING FOR DIABETES 10/26/2018 MAMMOGRAM 2023 PAP SMEAR 02/18/2024 02/17/2021 INFLUENZA VACCINE (#1) 2025 07/26/2022 PNEUMOCOCCAL VACCINES (0-49 years) Completed 2022 HEPATITIS A VACCINES Aged Out No long er eligible based on patient's age to complete this topic HIB VACCINES Aged Out No longer eligi ble based on patient's age to complete this topic MENINGOCOCCAL VACCINES (ACWY) Aged Out No longer eligible based on patient's age to complete this topic MENINGOCOCCAL VACCINES (B) Aged Out N o longer eligible based on patient's age to complete this topic Medical Devices Not on file Insurance [employer] HEALTH TOGETHER [facility] MCO TOGETHER M[employer] HEALTH TOGETHER [employer] [address] [place] [id number] TOGETHER MCO Care Teams Car Designer Relationship Specialty Start Date End Date Mya Hopson PA [address] [facility] [address] [place] [address] PCP - General Wood Scrap Handler 10/21/20 Additional Source Comments The information contained in this document represents components of the legal health record. It is not the complete legal health record.[facility]
--- OUTSIDE RECORDS SUMMARY | 2025-04-15 18:56 | XMS_ITS | Encounter Summary ---
Author Organization [facility] Address [facility] [employer] [facility] [address] [place] [phone] Phone Care Team Providers Care Sales Representative [employer] Name Role Phone Mya Hopson Primary Care Provider Encounter Details Date Type Department Care Team (Late st Contact Info) Description 12/06/2021 Procedure [facility], [address] [address] Social History Tobacco Use Types Packs/Day Years Used Date Smoking Tobacco: Never Assessed Comments Unknown Sex and Gender Information Value Date Recorded Sex Assigned at Not on file Legal Sex Female 9:26 AM EDT Gender Identity Not on file Sexual Orientation Not on file documented as of this encounter Plan of Treatment Not on file documented as of this encounter Visit Diagnoses Not on filedocumented in this encounter Care Teams Sales Representative [employer] Relationship Specialty Start Date End Date Mya Hopson PA [address] [place] [address] [address] [place] [address] PCP - General Seamer Panty Hose 10/21/20 documented as of this encounter Additional Source Comments The information contained in this document represents components of the legal health record. It is not the complete legal health record.[facility]
--- OUTSIDE RECORDS SUMMARY | 2025-04-15 18:56 | XMS_ITS | Clinical Summary ---
Author Organization [facility] Address [address] [place] [phone] Phone Care Team Providers Care Aitchbone Breaker Name Role Phone Nilson Whitman MD Primary Care Provider [phone] Surgical History Surgery Date Site/Laterality Comments OTHER [...] Health Maintenance Due Date Last Done Comments DTaP,Tdap,and Td Vaccines (1 - Tdap) 10/26/2002 Hepatitis A Vaccines (1 of 2 - Risk 2-dose series) 10/26/2002 Hepatitis B Vaccines (1 of 3 - 19+ 3-dose series) 10/26/2002 HPV Vaccines (1 - 3-dose SCD M series) 10/26/2010 Cholesterol Screening (Lipid Panel) 05/28/2022 HIV Screening 05/28/2022 Hepatitis C Screening 05/28/2022 Social Influencers of Health Screening 05/28/2022 Cervical Cancer Screening: P ap Smear 02/18/2024 02/17/2021 Depression Screening 06/26/2024 COVID-19 Vaccine (1 - 2023-2 5 season) 2025 Influenza Vaccine (#1) 2025 3, 07/26/2022 Breast Cancer Screening 05/07/2026 05/07/20 24, 10/19/2022 RSV Immunization Adult Patients (1 - 1-dose 75+ series) 10/26/2058 Pneumococcal Vaccine: Pediatrics (0 to 5 Years) [...] for biopsy. PQRI CPT II 3342F Code 72539, 50449 PQRI 225 CPT II 7025F TISSUE DENSITY: There are scattered areas of fibroglandular density. (BI-RADS category B) IMPRESSION: Benign. BI-RADS CATEGORY: 2 - BENIGN RECOMMENDATION: Screening bilateral mammogram is recommended in 1 year. Mammo Location: [facility], [address] [place] [address] -------- FINAL REPORT -------- Dictated By: Arash Kaur Dictated Date: 05/07/2024 11:38 ET Assigned Physician: Arash Kaur Reviewed and Electronically Signed By: Arash Kaur Signed Date: 05/07/2024 11:42 ET Workstation ID: [id number] Transcribed By: Self Edit Transcribed Date: 05/07/2024 11:38 ET Narrative 05/07/2024 11:42 AM EST CLINICAL: The patient is a 38 years Female presenting for routine screening mammography. COMPARISON: 10/19/2022 and 07/09/2020. TECHNIQUE: Full-field digital mammography of the breasts bilaterally consisting of tomosynthesis in MLO and CC projection is performed in the Cubresaographe 2000-D unit. Computer aided detection utilizing the [...] MLO and CC projection is performed in theSynlogic Senographe 2000-D unit. Computer aided detection utilizing the iCADsystem was utilized. FINDINGS: The breasts are again [...] for biopsy. PQRI CPT II 3342F Code 75074, 27580 PQRI 225 CPT II 7025F TISSUE DENSITY: There are scattered areas of fibroglandular density.(BI-RADS category B) IMPRESSION: Benign. BI-RADS CATEGORY: 2 - BENIGN RECOMMENDATION: Screening bilateral mammogram is recommended in 1 year. Mammo Location: [facility], [address] [place] [id number] -------- FINAL REPORT -------- Dictated By: Arash Kaur Dictated Date: 05/07/2024 11:38 ET Assigned Physician: Arash Kaur Reviewed and Electronically Signed By: Arash Kaur Signed Date: 05/07/2024 11:42 ET Workstation ID: [id number] Transcribed By: Self Edit Transcribed Date: 05/07/2024 11:38 ET us Nilson Whitman MD IMG BI PROCEDURES Final Result * Pap smear (02/17/2021) 02/17/2021 Narrative HISTORICAL TESTING LAB RESULTING AGENCY - 03/02/2021 7:45 AM EDT [id number] THINPREP PAP, IMAGED: NEGATIVE FOR SQUAMOUS INTRAEPITHELIAL [...] PAP HX NONE, NO LMP RECORDED [Z12.4] us Kisha Mckeon DO LAB CYTOLOGY ORDERABLES Final Result HISTORICAL TESTING LAB RESULTING AGENCY from Last 3 Months or Most Recently Relevant to Health Maintenance Insurance [facility] [employer] [place] [id number] Care Teams Aitchbone Breaker Relationship Specialty Start Date End Date Nilson Whitman MD [address] [facility] [address] [place], [place] PCP - General Internal Medicine 08/14/20
== END 2025-04-15 14:45 | disposition home or self-care (01) ==
LOC: HO.HSMS 14:03
PROVIDERS: PCP Psychiatry & Neurology Neurology; Visit Provider Nurse Practitioner Family
DX: G43.709 Chronic migraine without aura, not intractable, without status migrainosus (principal); G43.109 Migraine with aura, not intractable, without status migrainosus; G43.829 Menstrual migraine, not intractable, without status migrainosus
CPT/HCPCS: 99214

== ENCOUNTER 2025-04-29 11:07 | Outpatient (AMB) | payer OTHER, SELFPAY ==
--- NOTE | 2025-04-29 11:07 | MHC.OFFVIS ---
Vital Signs 04/29/25 11:08 Height 5 ft 3 in Weight 179 lb BMI 31.7 BP 118/80 Blood Pressure Location Rt brachial Position Sitting Pulse 85 Pulse Source Pulse Oximeter Pulse Oximetry (%) 97 Oxygen Delivery Method Room Air Intake Visit Reasons: Botox Intake Note: Botox 200units practice supply Bodywork Therapist Required: No Accompanied by: Self / Same As Patient Allergies buprenorphine (From BUTRANS) Allergy (Severe, Verified 04/29/25 11:08) MIGRAINES hydrocodone Allergy (Severe, Verified 04/29/25 11:08) Migraine NSAIDS (Non-Steroidal Anti-Inflamma (NSAIDS (NON-STEROIDAL ANTI-INFLAMMA) Allergy (Severe, Verified 04/29/25 11:08) SOB/SWELLING oxycodone Allergy (Severe, Verified 04/29/25 11:08) Migraine tramadol (From ULTRAM) Allergy (Intermediate, Verified 04/29/25 11:08) ITCHING adhesive Allergy (Unknown, Verified 04/29/25 11:08) Unknown ibuprofen Allergy (Unknown, Verified 04/29/25 11:08) Unknown Medication List - Last Reconciled 04/29/25 by Vane Mcpherson MD acetaminophen (Tylenol Extra Strength) 500 mg PO Q6H PRN amitriptyline 25 mg PO BEDTIME 30 days amitriptyline 10 mg PO BEDTIME 30 days atogepant (Qulipta) 60 mg PO DAILY 30 days bupropion HCl XL 300 mg PO QAM buspirone 10 mg PO BID [id number]-cod [id number] mg 1 cap PO Q4H PRN coenzyme [id number] E 100-100 mg-unit caps PO diclofenac sodium 75 mg PO BID eletriptan take 1 tab at onset of headache; if no relief, may repeat 1 tab after at least 2 hrs; max = 2 tabs/24 hrs orally PRN; 30 days etanercept (Enbrel) 25 mg subcut QWEEK gabapentin 800 mg PO TID hydroxychloroquine 200 mg PO DAILY levothyroxine (Synthroid) 50 mcg PO DAILY liothyronine (Cytomel) 5 mcg PO DAILY magnesium 200 mg PO BID metoclopramide HCl 10 mg PO QIDACHS quetiapine 50 mg PO DAILY riboflavin (vitamin B2) 400 mg PO DAILY 30 days sumatriptan succinate take 1 tab at onset of headache; if no relief, may repeat 1 tab after at least 2 hrs; max = 2 tabs/24 hrs PO tizanidine 4 mg PO BEDTIME PRN topiramate Take 100 mg in am AND 100mg every other night and 150 mg on alternate nights orally daily; 90 days tramadol 100 mg PO BID PRN HPI Comments Details: ? 39y/o female comes for treatment of migraines with botox. How many migraine days prior to botox-20 How long do the migraines last=2-3 Intensity of migraine-10 ER visits related to hnulaqcl-4-9 Effectiveness of botox from last treatment(s) How many migraine days since receiving treatment:10 Change? in intensity of migraine?decreased Change in frequency of migraine?decreased Change in use of acute medication for migraine?decreased Change in quality of life?improved ER visits related to migraine?none Explanation for any gaps in treatment Have at least three months elapsed since last treatment (Last botox date - frequency of injections)3mths ago ??? Most frequent reported adverse reactions following injection of botox for chronic migraine include neck pain (9%), headache(5%), eyelid ptosis(4%), migraine(4%), muscular weakness(4%), musculuskeletal stiffness(4%), bronchitis(3%), injection site pain (3%), musculoskeletal pain(3%), myalgia(3%), facial paresis(2%), HTN(2%) and muscle spasms(2%) were discussed in detail. ??? Botulinum toxin typeA 200units Lot no [id number] expiration November2026 was diluted with 4 cc of normal saline . ??? Muscles injected- ??? Frontalis 4 sites ??? Procerus 1 site ??? Rental Sales Representative- 2 sites ??? Temporalis- 8 sites ??? Occipitalis- 6 sites ??? Cervical paraspinals- 4 sites ??? Trapezius- 6 sites- 10 units each ??? 5 units each in 31 site ??? Total use- 185units ??? Discarded-15units [facility] Medical History Sleep difficulties Depression with anxiety Low back pain Fibromyalgia Haile's thyroiditis Connective tissue disease Surgical History H/O hernia repair History of hysteroscopy H/O tubal ligation H/O section H/O arthroscopic knee surgery History of back surgery Family History Mother Migraine Lupus Breast cancer in female HTN (hypertension) Sarcoidosis Sister Migraine Father Cancer Son ADHD Anxiety Son Asthma Social History Alcohol intake: current Patient Tobacco Use Status: Current everyday Tobacco user Physical Exam Const General: cooperative and no acute distress Orientation/consciousness: patient oriented x3 Resp Effort & Inspection: normal respiratory effort and able to speak in complete sentences Neuro General: patient oriented x3 Cranial nerves: Yes CN's II-XII intact bilaterally Cognition (Neuro): normal cognition Psych Appearance: grossly normal Mental Status: mental status grossly normal Speech and movement: Normal speech and movement present Affect: normal affect Attitude: cooperative Office Procedures Botulinum toxin Injection 26113 - Migraine Procedure code (CPT) selection complete Office Meds onabotulinumtoxinA 200 unit solution for injection Performing Provider: Vane Mcpherson MD Performing [place] [facility] Administered by: Vane Mcpherson MD on 04/29/25 11:38 Dose Route Admin Location Dispensed Lot Number Expiration Date [facility] Buffing Wheel Raker 185 unit subcut 200 units [id number] ALLERGAN/BOTOX Total Dispensed Waste 200 units 7.5 % Assessment & Plan Assessment & Plan (1) Chronic migraine without aura: Code(s): G43.709 - Chronic migraine without aura, not intractable, without status migrainosus Category: Medical Qualifiers: Status migrainosus presence: without status migrainosus Intractability: not intractable Qualified Code(s): G43.709 - Chronic migraine without aura, not intractable, without status migrainosus Plan Patient tolerated the procedure well she will call with any side effects Orders: Orders AMB Botulinum toxin Injection Today G43.709 - Chronic migraine without aura, not intractable, without status migrainosus Coding Level of Care Code Est Pt Level 1 (60606) Diagnoses Chronic migraine without aura without status migrainosus, not intractable G43.709 Status migrainosus presence: without status migrainosus Intractability: not intractable CPT Codes Botox Injection - Botox 3: 36327 - Migraine ([id number])
[2025-04-29 11:08] VITALS: BP 118/80; PULSE 85; O2SAT 97; BMI 31.7
== END 2025-04-29 11:29 | disposition home or self-care (01) ==
LOC: HO.HSMS 11:07
PROVIDERS: PCP Psychiatry & Neurology Neurology; Visit Provider Psychiatry & Neurology Neurology
DX: G43.709 Chronic migraine without aura, not intractable, without status migrainosus (principal)
CPT/HCPCS: 64615; 99499

== ENCOUNTER → 2025-04-29 11:07 | Outpatient (BNVA) | payer OTHER, SELFPAY | PROVIDERS: PCP Psychiatry & Neurology Neurology; Visit Provider Psychiatry & Neurology Neurology | DX: G43.709 Chronic migraine without aura, not intractable, without status migrainosus (principal) | CPT/HCPCS: 64615; J0585 ==